=== PATIENT | female | born 1960 | race Caucasian/White ===

== ENCOUNTER → 2016-07-28 | Outpatient (CLI) | payer MEDICARE ==
[2016-07-28 10:41] LABS: Erythrocyte Sedimentation Rate 19 mm/hr (0-20)
[2016-07-28 11:22] LABS: ALT 42 U/L (9-52); AST 20 U/L (14-36); Alkaline Phosphatase 106 U/L (38-126); Anion Gap 11 mmol/L; Blood Urea Nitrogen 27 mg/dL (7-17); C Reactive Protein 5.9 mg/L (<10.0); Calcium 9.9 mg/dL (8.4-10.2); Carbon Dioxide 30 mmol/L (22-30); Chloride 105 mmol/L (98-107); Cholesterol 197 mg/dL (<200); Glucose 110 mg/dL (74-99); HDL Cholesterol 66 mg/dL (40-60); Magnesium 2.3 mg/dL (1.6-2.3); Non-African American GFR(MDRD) 57 (>60 ml/min/1.73 sqM); Potassium 4.3 mmol/L (3.5-5.1); Sodium 146 mmol/L (137-145); Total Bilirubin 0.4 mg/dL (0.2-1.3); Total Protein 7.6 g/dL (6.3-8.2); Triglycerides 77 mg/dL (<150); Uric Acid 4.2 mg/dL (3.7-7.4)
[2016-07-28 11:23] LABS: Rheumatoid Factor, Qnt <9 IU/mL (<12)
[2016-07-28 12:32] LABS: Basophils % (A) 1 %; CH 28.1; CHCM 32.6; Eosinophils # (A) 0.1 k/uL (0-0.7); Eosinophils % (A) 2 %; HCT 41.2 % (34.0-46.0); HDW 2.64; HGB 13.7 gm/dL (11.4-16.0); Luc % (Auto) 1; Lymphocytes # (A) 2.3 k/uL (1.0-4.8); Lymphocytes % (A) 35 %; MCH 28.8 pg (25.0-35.0); MCHC 33.3 g/dL (31.0-37.0); MCV 86.5 fL (80.0-100.0); Mean Platelet Volume 7.9; Monocytes # (A) 0.3 k/uL (0-1.0); Monocytes % (A) 5 %; Neutrophils # (A) 3.7 k/uL (1.3-7.7); Neutrophils % (A) 56 %; RBC 4.76 m/uL (3.80-5.40); RDW 14.4 % (11.5-15.5); WBC 6.6 k/uL (3.8-10.6); WBC (Perox) 6.48
== END | disposition home or self-care (01) ==
LOC: LABWHC1 06:32
PROVIDERS: ATTEND Internal Medicine
DX: M25.579 Pain in unspecified ankle and joints of unspecified foot (principal); I10 Essential (primary) hypertension; M54.2 Cervicalgia
CPT/HCPCS: 36415; 80053; 80061; 83735; 84439; 84443; 84481; 84550; 85025; 85652; 86038; 86140; 86200; 86431

== ENCOUNTER → 2016-08-12 | Outpatient (CLI) | payer MEDICARE ==
--- NOTE | 2016-08-12 13:12 | US ---
EXAMINATION TYPE: US thyroid st tissue head/neck DATE OF EXAM: 08/12/2016 12:25 PM COMPARISON: NONE CLINICAL HISTORY: M54.2 neck pain. neck tenderness, enlarged thyroid on exam GLAND SIZE: Right Lobe: 4.5 x 1.2 x 1.8 cm Left Lobe: 4.6 x 1.2 x 1.4 cm Isthmus Thickness: 0.3 cm NODULES RIGHT: # of nodules measured on right: 3 1. 1.3 X 0.6 x 1.1 cm cystic nodule at the upper anterior pole with well-defined margins. This nod ule is wider than tall and shows no intranodular vascularity. Prior size: no previous 2. 0.7 X 0.5 x 0.5 cm cystic nodule at the lower pole with well-defined margins. This nodule is wid er than tall and shows no intranodular vascularity. Prior size: no previous 3. 0.6 cm mixed cystic nodule at the mid anterior pole with well-defined margins. This nodule is wid er than tall and shows no intranodular vascularity. Prior size: no previous 4. Few small other scattered cystic nodules less than 0.5cm LEFT: # of nodules measured on left: 2 1. 1.0 X 0.7 x 0.7 cm complex cystic nodule at the lower pole with well-defined margins. This nodu le is wider than tall and shows vascularity within the internal echoes. Prior size: no previous 2. 1.1 X 0.7 x 0.9 cm heterogeneous solid nodule at the upper pole with well-defined margins and a s hadowing calcified component. This nodule is wider than tall and shows intranodular vascularity. Prior size: no previous ISTHMUS: # of nodules measured in the isthmus: 0 Thyroid gland is normal in size with scattered small nodules identified. Largest well-circumscribed o sariah 1.3 cm cystic nodule has a focus of colloid along the periphery. Largest left thyroid lobe measur es 1.1 cm on long axis. IMPRESSION: Ultrasound findings are consistent with multinodular goiter as detailed above.
== END | disposition home or self-care (01) ==
LOC: RADUSWWP 11:57
PROVIDERS: ATTEND Internal Medicine
DX: M54.2 Cervicalgia (principal)
CPT/HCPCS: 76536

== ENCOUNTER 2016-11-11 10:28 | Observation (INO) | payer MEDICARE, OTHER ==
--- NOTE | 2016-11-11 11:04 | ED ---
General Adult HPI - General Chief complaint: Chest Pain Stated complaint: chest pain,abn ekg Time Seen by Provider: 11/11/16 10:35 Source: patient, RN notes reviewed, old records reviewed Mode of arrival: wheelchair Limitations: no limitations - History of Present Illness Initial comments: This is a 56-year-old female the ER for evaluation. Patient has a for evaluation of chest pain. Patient originally presented to primary care sent here for approximately normally EKG. patient does have history of high blood pressure. Patient currently still complaining of chest pain. No fevers cough or congestion or shortness of breath travel history - Related Data Home Medications Medication Instructions Recorded Confirmed Aspirin 81 mg PO DAILY 09/29/15 11/11/16 Hydrochlorothiazide 12.5 mg PO DAILY 09/29/15 11/11/16 Lactulose 6.67 gm PO DAILY PRN 09/29/15 11/11/16 Lisinopril [Zestril] 20 mg PO BID 09/29/15 11/11/16 amLODIPine [Norvasc] 5 mg PO DAILY 09/29/15 11/11/16 Ibuprofen [Motrin] 800 mg PO Q8H PRN 11/11/16 11/11/16 LORazepam [Ativan] 1 mg PO BID PRN 11/11/16 11/11/16 Allergies Allergy/AdvReac Type Severity Reaction Status Date / Time No Known Allergies Allergy Verified 11/11/16 11:04 Review of Systems ROS Statement: Those systems with pertinent positive or pertinent negative responses have been documented in the HPI. ROS Other: All systems not noted in ROS Statement are negative. Past Medical History Past Medical History: Hypertension Additional Past Medical History / Comment(s): hypoglycemia History of Any Multi-Drug Resistant Organisms: None Reported Past Surgical History: Cholecystectomy, Hernia Repair, Hysterectomy Additional Past Surgical History / Comment(s): trach as a baby, Past Psychological History: Depression Smoking Status: Never smoker Past Alcohol Use History: Rare Past Drug Use History: None Reported General Exam Limitations: no limitations General appearance: alert, in no apparent distress Head exam: Present: atraumatic, normocephalic, normal inspection Eye exam: Present: normal appearance, PERRL, EOMI. Absent: scleral icterus, conjunctival injection, periorbital swelling ENT exam: Present: normal exam, mucous membranes moist Neck exam: Present: normal inspection. Absent: tenderness, meningismus, lymphadenopathy Respiratory exam: Present: normal lung sounds bilaterally. Absent: respiratory distress, wheezes, rales, rhonchi, stridor Cardiovascular Exam: Present: regular rate, normal rhythm, normal heart sounds. Absent: systolic murmur, diastolic murmur, rubs, gallop, clicks GI/Abdominal exam: Present: soft, normal bowel sounds. Absent: distended, tenderness, guarding, rebound, rigid Extremities exam: Present: normal inspection, full ROM, normal capillary refill. Absent: tenderness, pedal edema, joint swelling, calf tenderness Back exam: Present: normal inspection Neurological exam: Present: alert, oriented X3, CN II-XII intact Psychiatric exam: Present: normal affect, normal mood Skin exam: Present: warm, dry, intact, normal color. Absent: rash Course Vital Signs 11/11/16 11/11/16 10:31 11:15 Temperature 97.9 F Pulse Rate 89 77 Respiratory 20 18 Rate Blood Pressure 196/87 169/85 O2 Sat by Pulse 99 99 Oximetry - Reevaluation(s) Reevaluation #1: 11/11/16 13:18 Patient is to chest pain at this time EKG Findings - EKG Comments: EKG Findings:: EKG shows normal sinus rhythm rate of 80, ME 150, QRS 84, QTC 429 Medical Decision Making - Medical Decision Making 36 severity chest pain, history of chest pain history of heart disease. Patient be admitted for cardiac observation, anticoagulation telemetry and serial troponins - Lab Data Result diagrams: 11/11/16 10:55 11/11/16 10:55 Lab Results 11/11/16 11/11/16 11/11/16 Range/Units 10:55 10:55 10:55 WBC 8.4 (3.8-10.6) k/uL RBC 4.52 (3.80-5.40) m/uL Hgb 13.4 (11.4-16.0) gm/dL Hct 38.4 (34.0-46.0) % MCV 84.9 (80.0-100.0) fL MCH 29.6 (25.0-35.0) pg MCHC 34.8 (31.0-37.0) g/dL RDW 13.8 (11.5-15.5) % Plt Count 234 (150-450) k/uL Neutrophils % 71 % Lymphocytes % 23 % Monocytes % 4 % Eosinophils % 0 % Basophils % 0 % Neutrophils # 6.0 (1.3-7.7) k/uL Lymphocytes # 2.0 (1.0-4.8) k/uL Monocytes # 0.3 (0-1.0) k/uL Eosinophils # 0.0 (0-0.7) k/uL Basophils # 0.0 (0-0.2) k/uL PT (9.0-12.0) sec INR (<1.1) APTT (22.0-30.0) sec Sodium 145 (137-145) mmol/L Potassium 3.8 (3.5-5.1) mmol/L Chloride 108 H (98-107) mmol/L Carbon Dioxide 25 (22-30) mmol/L Anion Gap 12 mmol/L BUN 21 H (7-17) mg/dL Creatinine 0.90 (0.52-1.04) mg/dL Est GFR (MDRD) Af Amer >60 (>60 ml/min/1.73 sqM) Est GFR (MDRD) Non-Af >60 (>60 ml/min/1.73 sqM) Glucose 99 (74-99) mg/dL Calcium 9.9 (8.4-10.2) mg/dL Magnesium 2.0 (1.6-2.3) mg/dL Total Bilirubin 0.5 (0.2-1.3) mg/dL AST 21 (14-36) U/L ALT 38 (9-52) U/L Alkaline Phosphatase 121 (38-126) U/L Total Creatine Kinase 148 H (30-135) U/L CK-MB (CK-2) 0.4 (0.0-2.4) ng/mL CK-MB (CK-2) Rel Index 0.3 Troponin I <0.012 (0.000-0.034) ng/mL Total Protein 7.4 (6.3-8.2) g/dL Albumin 4.5 (3.5-5.0) g/dL Lipase 85 (23-300) U/L / Range/Units 10:55 WBC (3.8-10.6) k/uL RBC (3.80-5.40) m/uL Hgb (11.4-16.0) gm/dL Hct (34.0-46.0) % MCV (80.0-100.0) fL MCH (25.0-35.0) pg MCHC (31.0-37.0) g/dL RDW (11.5-15.5) % Plt Count (150-450) k/uL Neutrophils % % Lymphocytes % % Monocytes % % Eosinophils % % Basophils % % Neutrophils # (1.3-7.7) k/uL Lymphocytes # (1.0-4.8) k/uL Monocytes # (0-1.0) k/uL Eosinophils # (0-0.7) k/uL Basophils # (0-0.2) k/uL PT 10.8 (9.0-12.0) sec INR 1.1 (<1.1) APTT 26.0 (22.0-30.0) sec Sodium (137-145) mmol/L Potassium (3.5-5.1) mmol/L Chloride (98-107) mmol/L Carbon Dioxide (22-30) mmol/L Anion Gap mmol/L BUN (7-17) mg/dL Creatinine (0.52-1.04) mg/dL Est GFR (MDRD) Af Amer (>60 ml/min/1.73 sqM) Est GFR (MDRD) Non-Af (>60 ml/min/1.73 sqM) Glucose (74-99) mg/dL Calcium (8.4-10.2) mg/dL Magnesium (1.6-2.3) mg/dL Total Bilirubin (0.2-1.3) mg/dL AST (14-36) U/L ALT (9-52) U/L Alkaline Phosphatase (38-126) U/L Total Creatine Kinase (30-135) U/L CK-MB (CK-2) (0.0-2.4) ng/mL CK-MB (CK-2) Rel Index Troponin I (0.000-0.034) ng/mL Total Protein (6.3-8.2) g/dL Albumin (3.5-5.0) g/dL Lipase (23-300) U/L - Radiology Data Radiology results: report reviewed (Chest x-ray is negative for acute disease), image reviewed Critical Care Time Critical Care Time: Yes Total Critical Care Time: 31 Disposition Clinical Impression: Chest pain Disposition: ADMITTED IP TO THIS HOSP Condition: Undetermined Instructions: Chest Pain (ED) Referrals: Camden Rothman MD [Primary Care Provider] - 1-2 days
[2016-11-11 11:57] LABS: Basophils % (A) 0 %; CHCM 33.2; Eosinophils % (A) 0 %; HCT 38.4 % (34.0-46.0); HGB 13.4 gm/dL (11.4-16.0); Luc # (Auto) 0.11; Luc % (Auto) 1; Lymphocytes % (A) 23 %; MCH 29.6 pg (25.0-35.0); MCHC 34.8 g/dL (31.0-37.0); MCV 84.9 fL (80.0-100.0); Mean Platelet Volume 7.2; Monocytes # (A) 0.3 k/uL (0-1.0); Monocytes % (A) 4 %; Neutrophils % (A) 71 %; RBC 4.52 m/uL (3.80-5.40); RDW 13.8 % (11.5-15.5); WBC 8.4 k/uL (3.8-10.6); WBC (Perox) 8.46
[2016-11-11 12:08] LABS: ALT 38 U/L (9-52); AST 21 U/L (14-36); Alkaline Phosphatase 121 U/L (38-126); Anion Gap 12 mmol/L; Blood Urea Nitrogen 21 mg/dL (7-17); Calcium 9.9 mg/dL (8.4-10.2); Carbon Dioxide 25 mmol/L (22-30); Chloride 108 mmol/L (98-107); Glucose 99 mg/dL (74-99); Non-African American GFR(MDRD) >60 (>60 ml/min/1.73 sqM); Potassium 3.8 mmol/L (3.5-5.1); Sodium 145 mmol/L (137-145); Total Bilirubin 0.5 mg/dL (0.2-1.3); Total Protein 7.4 g/dL (6.3-8.2)
[2016-11-11 12:09] LABS: INR 1.1 (<1.1); Prothrombin Time 10.8 sec (9.0-12.0)
[2016-11-11 12:17] LABS: Creatine Kinase 148 U/L (30-135)
--- NOTE | 2016-11-11 12:27 | XR ---
EXAMINATION TYPE: XR chest 2V DATE OF EXAM: 11/11/2016 HISTORY: Chest Pain. REFERENCE: Previous study dated 07/13/2012. FINDINGS: The lungs are clear. Pleural spaces are clear. Heart size is normal. IMPRESSION: NORMAL CHEST.
[2016-11-11 12:30] LABS: Creatine Kinase MB 0.4 ng/mL (0.0-2.4); Troponin I <0.012 ng/mL (0.000-0.034)
[2016-11-11] MEDS ORDERED: MORPHINE SULFATE 4 MG/ML SYRINGE IV PRN (12:58)
[2016-11-11] MEDS ORDERED: NITROGLYCERIN SL TABS 0.4 MG TAB SUBLINGUAL PRN (12:58)
[2016-11-11] MEDS ORDERED: MORPHINE SULFATE 2 MG/ML SYRINGE IVP PRN (12:58)
[2016-11-11] MEDS ORDERED: ASPIRIN 81 MG CHEW PO STA (12:58)
[2016-11-11] MEDS ORDERED: SODIUM CHLORIDE 0.9% 1,000 ML IV SCH (13:00)
[2016-11-11] MEDS ORDERED: LACTULOSE 20 GM/30 ML CUP PO PRN (14:18)
[2016-11-11] MEDS ORDERED: LORazepam 1 MG TAB PO PRN (14:18)
[2016-11-11 14:35] VITALS: RESP 16
[2016-11-11 17:38] LABS: Creatine Kinase 131 U/L (30-135)
[2016-11-11 17:52] LABS: Creatine Kinase MB 0.4 ng/mL (0.0-2.4); Troponin I <0.012 ng/mL (0.000-0.034)
[2016-11-11] MEDS ORDERED: NITROGLYCERIN OINT 1 INCH/GM PACKET TOPICAL SCH (18:00)
[2016-11-11] MEDS: LISINOPRIL 20 MG TAB PO SCH (20:14)
--- NOTE | 2016-11-11 21:00 | PN ---
Mrs. Robbins is a 56-year-old female who was admitted to the hospital with symptoms of chest discomfort. She has been having discomfort on and off for the last 5 days. The discomfort is not related to activity. It lasts for a few minutes and is radiating to the back, not associated with any other symptoms. She is reasonably active physically, has no exertional chest pain. No tightness in the chest. No significant dyspnea. No dizziness, palpitation or syncope. She has no PND, orthopnea or peripheral edema. She has been told a few years back that she had a leaky valve. Her coronary risk factors are remarkable for history of hypertension. She is a nonsmoker. Her medications at home include: 1. Norvasc 5 mg daily. 2. Zestril 20 mg twice a day. 3. Hydrochlorothiazide 12.5 mg daily. 4. Lactulose. 5. Aspirin once a day. REVIEW OF SYSTEMS: RESPIRATORY SYSTEM: She has no wheezing. No cough. No history of documented obstructive lung disease. GI SYSTEM: No recent GI bleeding. No peptic ulcer disease. SYSTEM: She has a remote history of hematuria, but not at this point. NERVOUS SYSTEM: No stroke or seizure. PHYSICAL EXAMINATION: A 56-year-old female, alert, oriented, in no apparent distress. Blood pressure running in the 150s to 160s with a heart rate in the 70s. LUNGS: Clear. HEART: Regular rate, rhythm. S1, S2. No S3. Systolic murmur heard at the base, ejection type, 2/6. No diastolic murmur. ABDOMEN: Soft, nontender. Positive bowel sounds. No organomegaly. EXTREMITIES: No edema. Intact distal pulses. Lab data revealed troponin less than 0.012 for one sample, BUN and creatinine of 21 and 0.9. Potassium 3.8. Hemoglobin is 13.4. EKG revealed a sinus mechanism, normal axis and intervals with nonspecific ST-T wave changes. Chest x-ray shows no infiltrate. IMPRESSION: 1. Chest discomfort of unclear etiology; has atypical features of ischemic disease, probably non-cardiac. 2. History of hypertension. 3. Family history of coronary artery disease. RECOMMENDATION: From the cardiac standpoint, I will proceed with obtaining an echocardiogram with Doppler as well as a stress echocardiogram. If there is no evidence of inducible ischemia, then no further cardiac workup will be needed. Thank you for this consult. Will follow with you.
--- NOTE | 2016-11-11 23:24 | HP ---
DATE OF ADMISSION: 11/11/2016 CHIEF COMPLAINT: Chest pain. HISTORY OF PRESENT ILLNESS: This 56-year-old woman with a past medical history of multiple medical problems, history of DJD, history of pneumonia, history of hypoglycemia, history of bilateral tinnitus, history of UTI, history of cardiac catheterization, history of cholecystectomy, history of depression, being followed by Dr. Rothman in the outpatient setting, was admitted with chest pain. The patient felt her chest pains in the anterior part of the chest, and they have been going on for the last 5 days. Because of lack of improvement, the patient came to [facility] and was admitted for further evaluation and treatment. The pain is rather sharp and felt also going through the back. EKG at the doctor's office showed ST-T changes. Patient was admitted for further evaluation and treatment. Troponins are negative. EKG confirmed the ST-T changes. There is no history of any fever, rigor, or chills. No history of any headache, loss of consciousness, seizures. Patient lives with her family. PAST MEDICAL HISTORY: 1. Hypertension. 2. DJD. 3. History of pneumonia. 4. Hypoglycemia. 5. Cholecystectomy. 6. Cardiac catheterization. HOME MEDICATIONS: 1. Motrin 800 mg q.8 p.r.n. 2. Norvasc 5 mg p.o. daily. 3. Zestril 20 mg p.o. b.i.d. 4. Lactulose 6.6 mg p.o. daily p.r.n. 5. Ativan 1 mg b.i.d. p.r.n. 6. Hydrochlorothiazide 12.5 mg daily. 7. Aspirin 81 mg daily. ALLERGIES: NONE. FAMILY HISTORY: No history of cardiac disease or strokes in the family. SOCIAL HISTORY: No history of smoking. Occasional alcohol intake. REVIEW OF SYSTEMS: ENT: No diminishing hearing. No diminished hearing. CARDIOVASCULAR: As mentioned earlier. RESPIRATORY: As mentioned earlier. GI: No nausea, vomiting. : No dysuria, retention. NERVOUS SYSTEM: No numbness or weakness. ALLERGY/IMMUNOLOGY: No asthma, hayfever. MUSCULOSKELETAL: As mentioned earlier. HEMATOLOGY/ONCOLOGY: No history of anemia. ENDOCRINE: No history of diabetes, hypothyroidism. CONSTITUTIONAL: As mentioned earlier. DERMATOLOGY: Negative. RHEUMATOLOGY: Negative. PSYCHIATRY: As mentioned earlier. PHYSICAL EXAMINATION: Patient is alert and oriented x3. Pulse 79, blood pressure 160/85, respiration 16, temperature 98.2, pulse ox 100% on room air. HEENT: Conjunctivae normal. Oral mucosa moist. NECK: No jugular venous distention. No carotid bruit. No lymph node enlargement. CARDIOVASCULAR SYSTEM: S1, S2 muffled. No S3. No S4. RESPIRATORY SYSTEM: Breath sounds diminished at the bases. No rhonchi. No crackles. ABDOMEN: Soft, non-tender. No mass palpable. LEGS: No edema. No swelling. NERVOUS SYSTEM: Higher functions as mentioned earlier. Moves all 4 limbs. No focal motor or sensory deficit. LYMPHATICS: No lymph node palpable in neck, axillae or groin. SKIN: No ulcer, rash, bleeding. LABS: CBC within normal limits. Sodium 140, potassium 3.8. BUN is 21. ASSESSMENT: 1. Chest pain; possible unstable angina. 2. ST-T changes on the EKG. 3. History of hypertension, essential. 4. History of degenerative joint disease. 5. History of pneumonia. 6. History of hypoglycemia. 7. History of urinary tract infection. 8. History of degenerative joint disease. 9. Chronic low back pain. 10. History of hernia repair. 11. History of depression. RECOMMENDATIONS AND DISCUSSION: In this 56-year-old woman who presented with multiple medical issues, we will monitor the patient closely, continue the current medications, continue symptomatic treatment. Otherwise, at this time rule out myocardial infarction. Cardiology consultation. Patient apparently did have a cardiac catheterization previously, the results of which are not available at this time. Continue to monitor. See orders. Symptomatic treatment. Further recommendations to follow. A copy of this dictation is being forwarded to Dr. Camden Rothman, who is the primary physician.
[2016-11-11] MEDS ORDERED: ACETAMINOPHEN TAB 325 MG TAB PO PRN (23:36)
[2016-11-12 00:56] LABS: Creatine Kinase 132 U/L (30-135)
[2016-11-12 01:09] LABS: Creatine Kinase MB 0.4 ng/mL (0.0-2.4); Troponin I <0.012 ng/mL (0.000-0.034)
[2016-11-12 06:05] LABS: Cholesterol 154 mg/dL (<200); HDL Cholesterol 48 mg/dL (40-60); Triglycerides 86 mg/dL (<150)
[2016-11-12] MEDS ORDERED: ASPIRIN 325 MG TAB PO SCH (09:00)
[2016-11-12] MEDS ORDERED: HYDROCHLOROTHIAZIDE 12.5 MG CAP PO SCH (09:00)
[2016-11-12] MEDS ORDERED: ATORVASTATIN 80 MG TAB PO SCH (09:00)
[2016-11-12] MEDS ORDERED: amLODIPine 5 MG TAB PO SCH (09:00)
--- NOTE | 2016-11-12 10:05 | ECHOF ---
Referral Reason: MEASUREMENTS -------- HEIGHT: 160.0 cm WEIGHT: 72.6 kg BP: 160/85 RVIDd: 2.8 cm (< 3.3) IVSd: 1.2 cm (0.6 - 1.1) LVIDd: 4.6 cm (3.9 - 5.3) LVPWd: 1.2 cm (0.6 - 1.1) IVSs: 1.5 cm LVIDs: 2.2 cm LVPWs: 1.3 cm LAESV Index (A-L): 13.71 ml/m Ao Diam: 2.9 cm (2.0 - 3.7) AV Cusp: 1.8 cm (1.5 - 2.6) LA Diam: 2.8 cm (2.7 - 3.8) MV EXCURSION: 15.618 mm (> 18.000) MV EF SLOPE: 91 mm/s (70 - 150) EPSS: 0.7 cm MV E Mitchell: 0.94 m/s MV DecT: 230 ms MV A Mitchell: 1.31 m/s MV E/A Ratio: 0.72 AR PHT: 616 ms RAP: 5.00 mmHg RVSP: 12.42 mmHg FINDINGS -------- Sinus rhythm. This was a technically adequate study. There is borderline concentric left ventricular hypertrophy. Overall left ventricular systolic function is normal with, an EF between 60 - 65 %. The right ventricle is normal in size and function. Normal LA size by volume 22+/-6 ml/m2. The right atrium is normal in size. Aortic valve is trileaflet and is mildly thickened. There is mild aortic regurgitation. The aortic pressure half-time by doppler is 616ms. There is no evidence of aortic stenosis. The mitral valve leaflets are mildly thickened. There is trace to mild mitral regurgitation. Trace tricuspid regurgitation present. There is no evidence of pulmonary hypertension. The right ventricular systolic pressure, as measured by Doppler, is 12.42mmHg. The pulmonic valve is normal. The aortic root size is normal. Normal inferior vena cava with normal inspiratory collapse consistent with estimated right atrial pressure of 5 mmHg. The pericardium is normal. There is no pericardial effusion. CONCLUSIONS -------- 1. Sinus rhythm. 2. Trace tricuspid regurgitation present. 3. There is no evidence of pulmonary hypertension. 4. The right ventricular systolic pressure, as measured by Doppler, is 12.42mmHg. 5. The aortic root size is normal. 6. There is no pericardial effusion. 7. There is borderline concentric left ventricular hypertrophy. 8. Overall left ventricular systolic function is normal with, an EF between 60 - 65 %. 9. Normal LA size by volume 22+/-6 ml/m2. 10. Aortic valve is trileaflet and is mildly thickened. 11. There is mild aortic regurgitation. 12. The aortic pressure half-time by doppler is 616ms. 13. The mitral valve leaflets are mildly thickened. 14. There is trace to mild mitral regurgitation. [employer] MANAGER: Lui Bhandari RDCS
[2016-11-12 12:21] VITALS: BP 137/77; PULSE 83; TEMP 98
[2016-11-12] MEDS: LISINOPRIL 20 MG TAB PO SCH (12:24)
--- NOTE | 2016-11-12 12:50 | PN ---
Mrs. Robbins is a 56-year-old female who has history of hypertension who presented with symptoms of chest discomfort. She had vague discomfort earlier but she is pain free at this time. Her breathing has been stable. She has no dizziness or palpitation. She has no nausea or vomiting. She continued to on aspirin once a day, amlodipine 5 mg daily, Lipitor 80 mg daily, hydrochlorothiazide 12.5 mg daily, lisinopril 20 mg twice a day. PHYSICAL EXAMINATION: Blood pressure 135/60 with the heart rate in the 80s. LUNGS: Clear. HEART: Regular rate and rhythm. S1 and S2, no S3, no rub. ABDOMEN: Soft, nontender. EXTREMITIES: No edema. Lab data revealed troponin less than 0.012. Cholesterol 154, LDL of 89. IMPRESSION: 1. Chest discomfort of atypical pattern. 2. History of hypertension. 3. Family history of coronary artery disease. RECOMMENDATION: Will proceed with a stress echocardiogram today. If there is no evidence of inducible ischemia, then no further cardiac workup will be needed.
--- NOTE | 2016-11-12 13:00 | ECHOS ---
DATE OF SERVICE: 11/12/2016 AGE: 56Y SEX: F HT: 63 WT: 160 lbs. Protocol Allen: X Others: Stress Echo Stage: III Dur. of Exercise: 7 minutes *Heart Rate Blood Pressure *Rest: 92 Rest: 136/67 * *Max. Achieved: 151 Maximum BP: 130/56 85% PMHR: 139 100% PMHR: 164 *METS: 8.1 INDICATIONS: Chest pain. MEDICATIONS: Patient was exercised for a total period of 7 minutes. Peak heart rate of 151 was achieved. Maximum blood pressure of 130/56 mmHg was noted. Resting EKG shows normal sinus rhythm with normal AK interval and QRS duration and normal ST-T waves. During exercise, J-point depression with upsloping ST segments are noted. The baseline echocardiographic images reveal a normal left ventricular chamber size with normal left ventricular systolic function. In the immediate postexercise period, normal increase in the wall thickness and contractility is noted. FINAL IMPRESSION: 1. This stress echocardiographic study is negative for stress-induced ischemia. 2. Patient's exercise tolerance is average. 3. EKG portion of the stress test shows equivocal nondiagnostic ST segment changes.
--- NOTE | 2016-11-13 11:22 | DS ---
DATE OF ADMISSION: 11/11/2016 DATE OF DISCHARGE: 11/12/2016 FINAL DIAGNOSES: 1. Chest pain, possible musculoskeletal pain. Negative stress test. 2. ST-T changes on EKG. 3. History of hypertension, essential. 4. History of degenerative joint disease. 5. History of pneumonia. 6. History of hypoglycemia. 7. History of urinary tract infection. 8. History of chronic low back pain. 9. History of hernia repair. 10. History of depression. DISCHARGE DISPOSITION: Patient will be discharged in stable condition with guarded prognosis. HISTORY OF PRESENT ILLNESS: This 56-year-old woman with a past medical history of multiple medical problems was admitted with chest pain, myocardial infarction ruled out. The patient underwent a stress echo by Cardiology which did not show any stress-induced ischemia. Exercise tolerance was average. The patient also had a 2-D echo with Doppler which showed ejection fraction about 60% to 65%. Cardiology okayed the patient for discharge. On exam, vitals are stable. CARDIOVASCULAR: S1 and S2 muffled. ABDOMEN: Soft. NERVOUS SYSTEM: No focal deficits. DISCHARGE ADVICE AND MEDICATIONS: 1. Diet is cardiac. 2. Activity limited until followup. 3. Follow up with Dr. Rothman in 2 to 3 days. 4. Follow up with Dr. Jung as advised. 5. Medications will be: a. Norvasc 5 mg p.o. daily. b. Aspirin 81 mg daily. c. Hydrochlorothiazide 12.5 mg daily. d. Lactulose 6.6 g in 15 mL daily p.r.n. e. Zestril 20 mg p.o. b.i.d. f. Ativan 1 mg p.o. b.i.d. p.r.n. Once again, the patient will be discharged in a stable continue with guarded prognosis.
== END 2016-11-12 14:20 | disposition home or self-care (01) ==
LOC: EC 10:28 → 3OBS 12:58
PROVIDERS: ADMIT Hospitalist; ATTEND Hospitalist
DX: R07.89 Other chest pain (principal); I10 Essential (primary) hypertension; M19.90 Unspecified osteoarthritis, unspecified site; E16.2 Hypoglycemia, unspecified; M54.5 Low back pain; F32.9 Major depressive disorder, single episode, unspecified; G89.29 Other chronic pain; I51.9 Heart disease, unspecified; Z79.899 Other long term (current) drug therapy; Z79.82 Long term (current) use of aspirin; Z90.49 Acquired absence of other specified parts of digestive tract; Z90.710 Acquired absence of both cervix and uterus; Z82.49 Family history of ischemic heart disease and other diseases of the circulatory system
CPT/HCPCS: 99291 ×2; 36415; 93005; 93017; 93306; 93350; 80061; 80053; 82550; 82553; 83690; 83735; 84484; 85025; 85610; 85730; 71020; G0378 ×2

== ENCOUNTER 2016-11-21 15:49 | Emergency (ER) | payer MEDICARE, OTHER ==
[2016-11-21 15:57] VITALS: BP 137/77; PULSE 108; RESP 20; TEMP 98
--- NOTE | 2016-11-21 16:22 | ED ---
Back Pain HPI - General Chief Complaint: Back Pain/Injury Stated Complaint: back pain Time Seen by Provider: 11/21/16 16:05 Source: patient, RN notes reviewed Limitations: no limitations - History of Present Illness Initial Comments: Patient is a 56-year-old female presents to the emergency room for evaluation of left sided back pain. Patient states she was recently discharged from the hospital regarding chest pain and back pain. Patient states that she received a stress test and a cardiac workup and everything came back negative. Patient states that she has an appointment with the tax compliance officer on the sixth of this month. Patient states around 1 PM she began developing right-sided mid back pain. Patient states this pain did feel similar to last time she was here. Patient states she was told if she developed any symptoms to come to the emergency room to make sure she is not having a heart attack. Patient denies shortness of breath. Patient denies the pain worsening with a deep breath. Patient denies any current chest pain. Patient denies nausea or vomiting. Patient denies pain or burning during urination, trouble urinating or blood in urine. Patient denies any recent trauma or injury to her back. Patient states the pain is worse with movement. Patient states the pain feels like a burning sensation. Patient states she did take Tylenol with relief of symptoms. - Related Data Home Medications Medication Instructions Recorded Confirmed Aspirin 81 mg PO DAILY 09/29/15 11/11/16 Hydrochlorothiazide 12.5 mg PO DAILY 09/29/15 11/11/16 Lactulose 6.67 gm PO DAILY PRN 09/29/15 11/11/16 Lisinopril [Zestril] 20 mg PO BID 09/29/15 11/11/16 amLODIPine [Norvasc] 5 mg PO DAILY 09/29/15 11/11/16 LORazepam [Ativan] 1 mg PO BID PRN 11/11/16 11/11/16 Allergies Allergy/AdvReac Type Severity Reaction Status Date / Time No Known Allergies Allergy Verified 11/21/16 15:57 Review of Systems ROS Statement: Those systems with pertinent positive or pertinent negative responses have been documented in the HPI. ROS Other: All systems not noted in ROS Statement are negative. Past Medical History Past Medical History: Hypertension, Osteoarthritis (OA), Pneumonia Additional Past Medical History / Comment(s): hypoglycemia, occasional bilateral tinnitus, UTI, arthritis bilateral hands and in back, chronic low back pain, History of Any Multi-Drug Resistant Organisms: None Reported Past Surgical History: Cholecystectomy, Heart Catheterization, Hernia Repair, Hysterectomy Additional Past Surgical History / Comment(s): Cardiac cath-no treatment, bilateral inguinal hernia repairs, colonoscopy, trach as a infant. Past Anesthesia/Blood Transfusion Reactions: No Reported Reaction Past Psychological History: Depression Smoking Status: Never smoker Past Alcohol Use History: Rare Past Drug Use History: None Reported - Past Family History Father Family Medical History: No Reported History Additional Family Medical History / Comment(s): Father in his 80's. Mother Family Medical History: Cancer Additional Family Medical History / Comment(s): Mother of lung cancer at the age of 38yrs. She was a smoker. General Exam - General Exam Comments Initial Comments: Sitting in exam room, no acute distress. Limitations: no limitations General appearance: alert, in no apparent distress Head exam: Present: atraumatic, normocephalic, normal inspection Eye exam: Present: normal appearance ENT exam: Present: normal exam Neck exam: Present: normal inspection Respiratory exam: Present: normal lung sounds bilaterally. Absent: respiratory distress Cardiovascular Exam: Present: normal rhythm, tachycardia, normal heart sounds Expanded Peripheral pulses: 2+: Carotid (R), Carotid (L), Femoral (R), Femoral (L), Posterior Tibialis (R), Posterior Tibialis (L), Dorsalis Pedis (R), Dorsalis Pedis (L) GI/Abdominal exam: Present: soft, normal bowel sounds. Absent: distended, tenderness, guarding, rebound, rigid Extremities exam: Present: normal inspection Back exam: Present: normal inspection Neurological exam: Present: alert, oriented X3, CN II-XII intact, normal gait Psychiatric exam: Present: normal affect, normal mood Skin exam: Present: warm, dry, intact, normal color. Absent: rash Course Vital Signs 11/21/16 15:55 Temperature 98 F Pulse Rate 108 H Respiratory 20 Rate Blood Pressure 137/77 O2 Sat by Pulse 99 Oximetry Medical Decision Making - Medical Decision Making Patient is a 56-year-old female presents to the emergency room for evaluation of back pain. Patient was admitted here about a week ago for chest pain. Repeat EKG consistent with previous EKG's. Patient's echocardiogram and stress test negative for any concerning findings. Patient does have a follow-up appointment with her tax compliance officer on the sixth of this month. Patient is complaining of minimal pain at the moment. Patient has good pulses. Blood pressure within normal limits. Case discussed with Dr. Mahan. Dr. Mahan also evaluated patient and agrees with plan for discharge and to still follow-up with tax compliance officer. Patient's symptoms consistent with possible back muscle strain. Patient states she understands everything that was discussed with her. Return parameters discussed. 11/21/16 16:34 EKG: Normal sinus rhythm, ventricular rate 94 bpm, NC interval 144 ms, QRS duration 78 ms, QT/QTC 354/442 ms. EKG unchanged from previous. Disposition Clinical Impression: Thoracic back pain Disposition: HOME SELF-CARE Condition: Good Instructions: Thoracic Back Strain (ED) Additional Instructions: Continue taking Tylenol as needed for pain. Please follow up with primary care provider and tax compliance officer. If any new symptom arises or symptoms worsen, return to ER as soon as possible. Referrals: Camden Rothman MD [Primary Care Provider] - 1-2 days Time of Disposition: 16:36
[2016-11-21] MEDS ORDERED: MAG HYDROX/AL HYDROX/SIMETH 30 ML, HYOSCYAMINE ELIXIR 10 ML, CIMETIDINE HCL 300 MG, LID... PO STA ×4 (16:25)
== END 2016-11-21 17:07 | disposition home or self-care (01) ==
LOC: EC 15:49
DX: M54.6 Pain in thoracic spine (principal); I10 Essential (primary) hypertension; M19.90 Unspecified osteoarthritis, unspecified site; F32.9 Major depressive disorder, single episode, unspecified; Z79.82 Long term (current) use of aspirin; Z79.899 Other long term (current) drug therapy; Z95.818 Presence of other cardiac implants and grafts
CPT/HCPCS: 93005; 99284

== ENCOUNTER 2017-01-05 17:51 | Emergency (ER) | payer MEDICARE, OTHER ==
[2017-01-05] MEDS ORDERED: LORazepam 2 MG/ML SYRINGE IV STA (18:27)
[2017-01-05] MEDS ORDERED: ASPIRIN 81 MG CHEW PO STA (18:27)
--- NOTE | 2017-01-05 19:01 | ED ---
General Adult HPI - General Chief complaint: Chest Pain Stated complaint: headache/high BP Time Seen by Provider: 01/05/17 18:19 Source: patient, RN notes reviewed Mode of arrival: ambulatory Limitations: no limitations - History of Present Illness Initial comments: 56-year-old female presents emergency Department with chief complaint of high blood pressure, chest pain, headache. Patient states she's been having on and off chest pain last few weeks she states she is actually admitted the hospital in October for similar symptoms had a stress test which showed no acute abnormality. He told her she just had atypical chest pain. Patient states her blood pressure was elevated today and she believes this is causing her symptoms. Patient did call her primary care physician who told her take half states that she recently has not been on it and she has been more anxious. Patient denies any shortness of breath no fever no chills. She has no history of hyperlipidemia no cardiac history - Related Data Home Medications Medication Instructions Recorded Confirmed Aspirin 81 mg PO DAILY 09/29/15 01/05/17 Hydrochlorothiazide 12.5 mg PO Q48H 09/29/15 01/05/17 Lactulose 6.67 gm PO DAILY PRN 09/29/15 01/05/17 Lisinopril [Zestril] 20 mg PO BID 09/29/15 01/05/17 amLODIPine [Norvasc] 5 mg PO DAILY 09/29/15 01/05/17 LORazepam [Ativan] 1 mg PO BID PRN 11/11/16 01/05/17 Acetaminophen [Tylenol] 650 mg PO BID PRN 01/05/17 01/05/17 Allergies Allergy/AdvReac Type Severity Reaction Status Date / Time No Known Allergies Allergy Verified 01/05/17 19:12 Review of Systems ROS Statement: Those systems with pertinent positive or pertinent negative responses have been documented in the HPI. ROS Other: All systems not noted in ROS Statement are negative. Past Medical History Past Medical History: Hypertension, Osteoarthritis (OA), Pneumonia Additional Past Medical History / Comment(s): hypoglycemia, occasional bilateral tinnitus, UTI, arthritis bilateral hands and in back, chronic low back pain, History of Any Multi-Drug Resistant Organisms: None Reported Past Surgical History: Cholecystectomy, Heart Catheterization, Hernia Repair, Hysterectomy Additional Past Surgical History / Comment(s): Cardiac cath-no treatment, bilateral inguinal hernia repairs, colonoscopy, trach as a infant. Past Anesthesia/Blood Transfusion Reactions: No Reported Reaction Past Psychological History: Depression Smoking Status: Never smoker Past Alcohol Use History: Rare Past Drug Use History: None Reported - Past Family History Father Family Medical History: No Reported History Additional Family Medical History / Comment(s): Father in his 80's. Mother Family Medical History: Cancer Additional Family Medical History / Comment(s): Mother of lung cancer at the age of 38yrs. She was a smoker. General Exam Limitations: no limitations General appearance: alert, in no apparent distress, anxious Head exam: Present: atraumatic, normocephalic, normal inspection Eye exam: Present: normal appearance, PERRL, EOMI. Absent: scleral icterus, conjunctival injection, periorbital swelling ENT exam: Present: normal exam, normal oropharynx, mucous membranes moist Neck exam: Present: normal inspection, full ROM. Absent: tenderness, meningismus, lymphadenopathy Respiratory exam: Present: normal lung sounds bilaterally. Absent: respiratory distress, wheezes, rales, rhonchi, stridor Cardiovascular Exam: Present: normal rhythm, tachycardia, normal heart sounds. Absent: systolic murmur, diastolic murmur, rubs, gallop, clicks GI/Abdominal exam: Present: soft, normal bowel sounds. Absent: distended, tenderness, guarding, rebound, rigid Neurological exam: Present: alert, oriented X3, CN II-XII intact Psychiatric exam: Present: anxious Skin exam: Present: warm, dry, intact, normal color. Absent: rash Course Vital Signs 01/05/17 01/05/17 18:14 19:52 Temperature 99.3 F 98.8 F Pulse Rate 110 H 88 Respiratory 18 16 Rate Blood Pressure 160/80 146/74 O2 Sat by Pulse 98 100 Oximetry EKG Findings - EKG Comments: EKG Findings:: EKG performed at 18:26 normal sinus rhythm with a rate of 98 DE interval 140 QS duration 76 QT/QTC 340/444 Medical Decision Making - Medical Decision Making 56-year-old female presented emergency department for hypertension and intermittent discomfort for weeks and a headache. Patient will pressure is improved. She states her symptoms have resolved with her Ativan. Patient has been offered Ativan for a while states he used to help her. Patient's prior records were reviewed she had a stress test which showed no acute abnormality. Patient will be discharged follow-up with Dr. Garcia return parameters were discussed. - Lab Data Result diagrams: 01/05/17 18:44 01/05/17 18:44 Lab Results 01/05/17 01/05/17 01/05/17 Range/Units 18:44 18:44 18:44 WBC 8.7 (3.8-10.6) k/uL RBC 4.87 (3.80-5.40) m/uL Hgb 13.8 (11.4-16.0) gm/dL Hct 42.4 (34.0-46.0) % MCV 87.1 (80.0-100.0) fL MCH 28.4 (25.0-35.0) pg MCHC 32.7 (31.0-37.0) g/dL RDW 15.4 (11.5-15.5) % Plt Count 288 (150-450) k/uL Neutrophils % 67 % Lymphocytes % 27 % Monocytes % 5 % Eosinophils % 0 % Basophils % 1 % Neutrophils # 5.8 (1.3-7.7) k/uL Lymphocytes # 2.3 (1.0-4.8) k/uL Monocytes # 0.4 (0-1.0) k/uL Eosinophils # 0.0 (0-0.7) k/uL Basophils # 0.1 (0-0.2) k/uL PT (9.0-12.0) sec INR (<1.2) APTT (22.0-30.0) sec D-Dimer (<0.60) mg/L FEU Sodium 143 (137-145) mmol/L Potassium 4.0 (3.5-5.1) mmol/L Chloride 104 (98-107) mmol/L Carbon Dioxide 27 (22-30) mmol/L Anion Gap 12 mmol/L BUN 16 (7-17) mg/dL Creatinine 0.80 (0.52-1.04) mg/dL Est GFR (MDRD) Af Amer >60 (>60 ml/min/1.73 sqM) Est GFR (MDRD) Non-Af >60 (>60 ml/min/1.73 sqM) Glucose 107 H (74-99) mg/dL Calcium 9.9 (8.4-10.2) mg/dL Magnesium 2.1 (1.6-2.3) mg/dL Total Bilirubin 0.3 (0.2-1.3) mg/dL AST 22 (14-36) U/L ALT 55 H (9-52) U/L Alkaline Phosphatase 91 (38-126) U/L Total Creatine Kinase 114 (30-135) U/L CK-MB (CK-2) 0.4 (0.0-2.4) ng/mL CK-MB (CK-2) Rel Index 0.4 Troponin I <0.012 (0.000-0.034) ng/mL Total Protein 7.9 (6.3-8.2) g/dL Albumin 4.7 (3.5-5.0) g/dL Lipase 67 (23-300) U/L 01/05/17 Range/Units 18:44 WBC (3.8-10.6) k/uL RBC (3.80-5.40) m/uL Hgb (11.4-16.0) gm/dL Hct (34.0-46.0) % MCV (80.0-100.0) fL MCH (25.0-35.0) pg MCHC (31.0-37.0) g/dL RDW (11.5-15.5) % Plt Count (150-450) k/uL Neutrophils % % Lymphocytes % % Monocytes % % Eosinophils % % Basophils % % Neutrophils # (1.3-7.7) k/uL Lymphocytes # (1.0-4.8) k/uL Monocytes # (0-1.0) k/uL Eosinophils # (0-0.7) k/uL Basophils # (0-0.2) k/uL PT 10.6 (9.0-12.0) sec INR 1.0 (<1.2) APTT 25.9 (22.0-30.0) sec D-Dimer 0.32 (<0.60) mg/L FEU Sodium (137-145) mmol/L Potassium (3.5-5.1) mmol/L Chloride (98-107) mmol/L Carbon Dioxide (22-30) mmol/L Anion Gap mmol/L BUN (7-17) mg/dL Creatinine (0.52-1.04) mg/dL Est GFR (MDRD) Af Amer (>60 ml/min/1.73 sqM) Est GFR (MDRD) Non-Af (>60 ml/min/1.73 sqM) Glucose (74-99) mg/dL Calcium (8.4-10.2) mg/dL Magnesium (1.6-2.3) mg/dL Total Bilirubin (0.2-1.3) mg/dL AST (14-36) U/L ALT (9-52) U/L Alkaline Phosphatase (38-126) U/L Total Creatine Kinase (30-135) U/L CK-MB (CK-2) (0.0-2.4) ng/mL CK-MB (CK-2) Rel Index Troponin I (0.000-0.034) ng/mL Total Protein (6.3-8.2) g/dL Albumin (3.5-5.0) g/dL Lipase (23-300) U/L Disposition Clinical Impression: Anxiety, Hypertension Disposition: HOME SELF-CARE Condition: Stable Instructions: Hypertension (ED) Additional Instructions: Please return to the Emergency Department if symptoms worsen or any other concerns. Referrals: Camden Rothman MD [Primary Care Provider] - 1-2 days Time of Disposition: 19:59
[2017-01-05 19:03] LABS: Basophils # (A) 0.1 k/uL (0-0.2); Basophils % (A) 1 %; CH 29.1; CHCM 33.6; Eosinophils % (A) 0 %; HCT 42.4 % (34.0-46.0); HDW 2.61; HGB 13.8 gm/dL (11.4-16.0); Luc # (Auto) 0.08; Luc % (Auto) 1; Lymphocytes # (A) 2.3 k/uL (1.0-4.8); Lymphocytes % (A) 27 %; MCH 28.4 pg (25.0-35.0); MCHC 32.7 g/dL (31.0-37.0); MCV 87.1 fL (80.0-100.0); Mean Platelet Volume 7.1; Monocytes # (A) 0.4 k/uL (0-1.0); Monocytes % (A) 5 %; Neutrophils # (A) 5.8 k/uL (1.3-7.7); Neutrophils % (A) 67 %; RBC 4.87 m/uL (3.80-5.40); RDW 15.4 % (11.5-15.5); WBC 8.7 k/uL (3.8-10.6); WBC (Perox) 8.39
[2017-01-05 19:08] LABS: ALT 55 U/L (9-52); AST 22 U/L (14-36); Alkaline Phosphatase 91 U/L (38-126); Anion Gap 12 mmol/L; Blood Urea Nitrogen 16 mg/dL (7-17); Calcium 9.9 mg/dL (8.4-10.2); Carbon Dioxide 27 mmol/L (22-30); Chloride 104 mmol/L (98-107); Glucose 107 mg/dL (74-99); Magnesium 2.1 mg/dL (1.6-2.3); Non-African American GFR(MDRD) >60 (>60 ml/min/1.73 sqM); Sodium 143 mmol/L (137-145); Total Bilirubin 0.3 mg/dL (0.2-1.3); Total Protein 7.9 g/dL (6.3-8.2)
--- NOTE | 2017-01-05 19:13 | XR ---
EXAMINATION TYPE: XR chest 2V DATE OF EXAM: 01/05/2017 COMPARISON: NONE HISTORY: Chest pain TECHNIQUE: Frontal and lateral views of the chest are obtained. FINDINGS: Heart and mediastinum are normal. Lungs are clear. Diaphragm is normal. There are chest le ads. Bony thorax is intact. IMPRESSION: Normal chest
[2017-01-05 19:22] LABS: Partial Thromboplastin Time 25.9 sec (22.0-30.0); Prothrombin Time 10.6 sec (9.0-12.0)
[2017-01-05 19:24] LABS: Creatine Kinase 114 U/L (30-135)
[2017-01-05 19:38] LABS: Creatine Kinase MB 0.4 ng/mL (0.0-2.4); Troponin I <0.012 ng/mL (0.000-0.034)
[2017-01-05 19:53] VITALS: BP 146/74; PULSE 88; RESP 16; TEMP 98.8
== END 2017-01-05 20:31 | disposition home or self-care (01) ==
LOC: EC 17:51
DX: R07.9 Chest pain, unspecified (principal); I10 Essential (primary) hypertension; F41.9 Anxiety disorder, unspecified; M19.90 Unspecified osteoarthritis, unspecified site; F32.9 Major depressive disorder, single episode, unspecified; Z79.82 Long term (current) use of aspirin; Z79.899 Other long term (current) drug therapy
CPT/HCPCS: 36415; 93005; 85379; 80053; 82550; 82553; 83690; 83735; 84484; 85025; 85610; 85730; 71020; 99285; 96374; J2060

== ENCOUNTER → 2017-02-17 | Outpatient (CLI) | payer MEDICARE ==
--- NOTE | 2017-02-17 08:40 | XR ---
EXAMINATION TYPE: XR thoracic spine 2V DATE OF EXAM: 02/17/2017 COMPARISON: NONE HISTORY: Back pain Alignment is anatomic. There is no compression deformities. Hypertrophic change and mild multilevel degenerative disc disease seen. No compression deformities. Pedicles intact. IMPRESSION: 1. Multilevel mild degenerative disc disease.
--- NOTE | 2017-02-18 07:32 | MM ---
Reason for exam: screening (asymptomatic). Last mammogram was performed 1 year ago. History: Patient is postmenopausal. Physical Findings: A clinical breast exam by your physician is recommended on an annual basis and results should be correlated with mammographic findings. MG Screening Mammo w CAD Bilateral CC and MLO view(s) were taken. XCCL view(s) were taken of the left breast. Prior study comparison: February 17, 2016, bilateral MG 3d screening mammo w/cad. September 12, 2014, bilateral MG screening mammo w CAD. There are scattered fibroglandular densities. Finding: There is a stable mass in the central position of the left breast. No significant changes in finding since February 17, 2016 and September 12, 2014. ASSESSMENT: Benign, BI-RAD 2 RECOMMENDATION: Routine screening mammogram of both breasts in 1 year.
== END | disposition home or self-care (01) ==
LOC: RADMAMWWP 08:00
PROVIDERS: ATTEND Internal Medicine
DX: Z12.31 Encounter for screening mammogram for malignant neoplasm of breast (principal); M51.34 Other intervertebral disc degeneration, thoracic region; M19.90 Unspecified osteoarthritis, unspecified site
CPT/HCPCS: 72070; G0202

== ENCOUNTER → 2018-01-09 | Outpatient (CLI) | payer MEDICARE ==
[2018-01-09 07:40] LABS: Basophils % (A) 0 %; Eosinophils % (A) 0 %; HCT 39.3 % (34.0-46.0); HGB 13.3 gm/dL (11.4-16.0); Lymphocytes # (A) 2.6 k/uL (1.0-4.8); Lymphocytes % (A) 28 %; MCH 28.5 pg (25.0-35.0); MCHC 33.8 g/dL (31.0-37.0); MCV 84.2 fL (80.0-100.0); Monocytes # (A) 0.4 k/uL (0-1.0); Monocytes % (A) 5 %; Neutrophils # (A) 6.1 k/uL (1.3-7.7); Neutrophils % (A) 66 %; Platelet Count 274 k/uL (150-450); RBC 4.67 m/uL (3.80-5.40); RDW 13.9 % (11.5-15.5); WBC 9.2 k/uL (3.8-10.6)
[2018-01-09 08:19] LABS: Albumin 4.2 g/dL (3.5-5.0); Calcium 9.9 mg/dL (8.4-10.2); Potassium 4.1 mmol/L (3.5-5.1); Total Bilirubin 0.5 mg/dL (0.2-1.3); Total Protein 7.3 g/dL (6.3-8.2)
[2018-01-09 08:29] LABS: Appearance,Urine Clear (Clear); Bilirubin,Urine Negative (Negative); Blood,Urine Trace (Negative); Color,Urine Yellow; Glucose,Urine (UA) Negative (Negative); Ketones,Urine Negative (Negative); Leukocyte Esterase,Urine Large (Negative); Mucus,Urine Rare /hpf; Nitrite,Urine Negative (Negative); Protein,Urine Trace (Negative); RBC,Urine 3 /hpf (0-5); Specific Gravity,Urine 1.024 (1.001-1.035); Squamous Epithelial Cell,Urine 8 /hpf (0-4); Urobilinogen,Urine <2.0 mg/dL (<2.0); WBC,Urine 10 /hpf (0-5)
[2018-01-09 13:14] LABS: Hemoglobin A1C 5.5 % (4.0-6.0)
[2018-01-09 16:29] LABS: Vitamin D 25 Hydroxy 24.4 ng/mL (30.0-100.0)
[2018-01-09 17:53] LABS: Hepatitis C IgG Antibody Non-Reactive (Non-Reactive)
== END | disposition home or self-care (01) ==
LOC: LABWHC1 07:06
PROVIDERS: ATTEND Internal Medicine
DX: G62.9 Polyneuropathy, unspecified (principal); I10 Essential (primary) hypertension; E55.9 Vitamin D deficiency, unspecified; Z13.9 Encounter for screening, unspecified
CPT/HCPCS: 36415; 80053; 80061; 81001; 82175; 82306; 82570; 82607; 83036; 83655; 83825; 84443; 85025; 86803

== ENCOUNTER → 2018-01-12 | Outpatient (CLI) | payer MEDICARE, OTHER ==
--- NOTE | 2018-01-12 10:42 | US ---
EXAMINATION TYPE: US thyroid st tissue head/neck DATE OF EXAM: 01/12/2018 COMPARISON: 08/12/2016 CLINICAL HISTORY: E04.1 Thyroid Nodule. GLAND SIZE: Right Lobe: 4.5 x 1.3 x 1.9 cm Overall Parenchyma: homogenous Left Lobe: 4.6 x 1.2 x 1.3 cm Overall Parenchyma: homogeneous Isthmus Thickness: 0.2 cm NODULES RIGHT: # of nodules measured on right: 3 1. 1.6 X 0.7 x 1.3 cm cystic nodule at the upper pole with well-defined margins; . This nodule is wider than tall and shows no intranodular vascularity. Prior size: 1.3 x 0.6 x 1.1 cm 2. 0.8 X 0.6 x 0.7 cm cystic nodule at the lower pole with well-defined margins; . This nodule is w ider than tall and shows no intranodular vascularity. Prior size: 0.7 x 0.5 x 0.5 cm 3. 0.5 X 0.3 x 0.4 cm cystic nodule at the mid pole with well-defined margins; . This nodule is wid er than tall and shows no intranodular vascularity. Prior size: 0.6 cm LEFT: # of nodules measured on left: 3 1. 1.1 X 0.8 x 0.8 cm complex cystic nodule at the lower pole with well-defined margins; . This no dule is wider than tall and shows intranodular vascularity. Prior size: 1.0 x 0.7 x 0.7 cm 2. 1.3 X 0.7 x 1.1 cm isoechoic solid nodule at the mid/upper pole with well-defined margins; with a shadowing calcification. This nodule is wider than tall and shows intranodular vascularity. Prior size: 1.1 x 0.7 x 0.9 cm 3. 0.6 X 0.3 x 0.5 cm mixed nodule at the mid pole with well-defined margins; . This nodule is wide r than tall and shows no intranodular vascularity. Prior size: no previous ISTHMUS: # of nodules measured in the isthmus: 0 IMPRESSION: 1. Slight increase in size of the mid to upper left thyroid nodule. 2. Slight increase in size of the right upper pole nodule
== END | disposition home or self-care (01) ==
LOC: RADUSWWP 08:35
PROVIDERS: ATTEND Internal Medicine
DX: E04.2 Nontoxic multinodular goiter (principal)
CPT/HCPCS: 76536

== ENCOUNTER 2018-01-16 14:57 | Emergency (ER) | payer OTHER, MEDICARE ==
[2018-01-16 15:37] VITALS: BP 139/72; PULSE 74; RESP 18; TEMP 98.3
[2018-01-16] MEDS ORDERED: IBUPROFEN 600 MG TAB PO STA (16:02)
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
== END 2018-01-16 17:00 | disposition home or self-care (01) ==
LOC: EC 14:57
DX: S00.03XA Contusion of scalp, initial encounter (principal); I10 Essential (primary) hypertension; M19.90 Unspecified osteoarthritis, unspecified site; Z95.818 Presence of other cardiac implants and grafts; Z79.82 Long term (current) use of aspirin; Z79.899 Other long term (current) drug therapy; V48.6XXA Car passenger injured in noncollision transport accident in traffic accident, initial encounter; Y92.410 Unspecified street and highway as the place of occurrence of the external cause
CPT/HCPCS: 70450; 99284

== ENCOUNTER → 2018-12-28 | Outpatient (CLI) | payer MEDICARE, OTHER ==
[2018-12-28 07:32] LABS: Basophils % (A) 0 %; Eosinophils # (A) 0.2 k/uL (0-0.7); Eosinophils % (A) 3 %; HCT 36.7 % (34.0-46.0); HGB 11.9 gm/dL (11.4-16.0); Lymphocytes % (A) 35 %; MCHC 32.4 g/dL (31.0-37.0); MCV 86.3 fL (80.0-100.0); Mean Platelet Volume 6.6; Monocytes # (A) 0.3 k/uL (0-1.0); Monocytes % (A) 5 %; Neutrophils # (A) 3.2 k/uL (1.3-7.7); Neutrophils % (A) 56 %; Platelet Count 219 k/uL (150-450); RBC 4.26 m/uL (3.80-5.40); RDW 14.6 % (11.5-15.5); WBC 5.8 k/uL (3.8-10.6)
[2018-12-28 08:01] LABS: Appearance,Urine Clear (Clear); Bilirubin,Urine Negative (Negative); Blood,Urine Trace (Negative); Color,Urine Yellow; Glucose,Urine (UA) Negative (Negative); Ketones,Urine Negative (Negative); Leukocyte Esterase,Urine Large (Negative); Mucus,Urine Rare /hpf; Nitrite,Urine Negative (Negative); Protein,Urine Negative (Negative); RBC,Urine 4 /hpf (0-5); Specific Gravity,Urine 1.029 (1.001-1.035); Squamous Epithelial Cell,Urine 9 /hpf (0-4); Urobilinogen,Urine <2.0 mg/dL (<2.0); WBC,Urine 9 /hpf (0-5)
[2018-12-28 11:46] LABS: African American GFR (CKD) 81.7 (60.0-200.0); Anion Gap 6.3 mmol/L (4.00-12.00); BUN/Creat Ratio 28.89 Ratio (12.00-20.00); Calcium 9.1 mg/dL (8.7-10.3); Carbon Dioxide 28.7 mmol/L (21.6-31.8); LDL Cholesterol,Calculated 105.2 mg/dL (0.0-131.0); Total Bilirubin 0.3 mg/dL (0.3-1.2); VLDL Calculation 25.8 mg/dL (5.00-40.00)
[2018-12-28 13:05] LABS: Vitamin D 25 Hydroxy 23.6 ng/mL (30.0-100.0)
[2018-12-28 14:17] LABS: Hepatitis C IgG Antibody Non-Reactive (Non-Reactive)
== END | disposition home or self-care (01) ==
LOC: LABWHC1 06:49
PROVIDERS: ATTEND Internal Medicine
DX: I10 Essential (primary) hypertension (principal); E04.9 Nontoxic goiter, unspecified; E55.9 Vitamin D deficiency, unspecified; Z13.9 Encounter for screening, unspecified
CPT/HCPCS: 36415; 80053; 80061; 81001; 82306; 84439; 84443; 84481; 85025; 86803; 87086

== ENCOUNTER → 2019-01-01 | Outpatient (CLI) | payer MEDICARE, OTHER ==
--- NOTE | 2019-01-01 08:45 | US ---
EXAMINATION TYPE: US thyroid st tissue head/neck DATE OF EXAM: 01/01/2019 COMPARISON: January 12, 2018 CLINICAL HISTORY: E04.9 Nontoxic goiter, unspecified. Thyroid nodules. GLAND SIZE: Right Lobe: 4.7 x 1.3 x 1.5 cm Overall Parenchyma: homogenous Left Lobe: 4.0 x 1.1 x 1.6 cm Overall Parenchyma: homogeneous Isthmus Thickness: .3 cm NODULES RIGHT: # of nodules measured on right: 3 1. 1.7 X .6 x 1.3 cm cystic nodule at the upper pole with well-defined margins; . This nodule is w ider than tall and shows no intranodular vascularity. Prior size: 1.6 x .7 x 1.3 cm 2. .4 X .2 x .5 cm cystic nodule at the mid pole with well-defined margins; . This nodule is wider than tall and shows no intranodular vascularity. Prior size: .5 x .3 x .4 cm 3. .6 X .5 x .6 cm cystic nodule at the lower pole with well-defined margins; . This nodule is wide r than tall and shows no intranodular vascularity. Prior size: .8 x .6 x .7 cm LEFT: # of nodules measured on left: 4 1. 1.3 X .7 x 1.1 cm isoechoic solid nodule at the upper pole with well-defined margins; with a sha dowing calcification. This nodule is wider than tall and shows intranodular vascularity. Prior size: 1.3 x .7 x 1.1 cm 2. .6 X .4 x .5 cm cystic nodule at the lower pole with well-defined margins; . This nodule is wide r than tall and shows no intranodular vascularity. Prior size: .6 x .3 x .5 cm 3. .5 X .3 x .5 cm cystic nodule at the lower pole with well-defined margins; . This nodule is wide r than tall and shows no intranodular vascularity. Prior size No previous 4. .6 X .3 x .9 cm cystic nodule at the lower pole with well-defined margins; . This nodule is wide r than tall and shows no intranodular vascularity. Prior size No previous. ISTHMUS: # of nodules measured in the isthmus: 0 Bilateral neck scanned, no evidence of lymphadenopathy. IMPRESSION: Nonspecific nodularity noted above.
== END | disposition home or self-care (01) ==
LOC: RADUSWWP 07:44
PROVIDERS: ATTEND Internal Medicine
DX: E04.2 Nontoxic multinodular goiter (principal)
CPT/HCPCS: 76536

== ENCOUNTER → 2019-04-12 | Outpatient (CLI) | payer MEDICARE ==
--- NOTE | 2019-04-13 11:20 | MM ---
Reason for exam: screening (asymptomatic). Last mammogram was performed 1 year ago. History: Patient is postmenopausal. Physical Findings: A clinical breast exam by your physician is recommended on an annual basis and results should be correlated with mammographic findings. MG 3D Screening Mammo W/Cad Bilateral CC and MLO view(s) were taken. XCCL view(s) were taken of the right breast. Prior study comparison: March 31, 2018, bilateral MG 3d screening mammo w/cad. February 17, 2017, bilateral MG screening mammo w CAD. There are scattered fibroglandular densities. There is no discrete abnormality. No significant changes when compared with prior studies. ASSESSMENT: Negative, BI-RAD 1 RECOMMENDATION: Routine screening mammogram of both breasts in 1 year.
== END | disposition home or self-care (01) ==
LOC: RADMAMWWP 08:09
PROVIDERS: ATTEND Internal Medicine
DX: Z12.31 Encounter for screening mammogram for malignant neoplasm of breast (principal)
CPT/HCPCS: 77063; 77067

== ENCOUNTER 2019-11-08 17:32 | Emergency (ER) | payer MEDICARE ==
[2019-11-08 17:41] VITALS: RESP 18; TEMP 98.6
[2019-11-08 18:31] LABS: Basophils % (A) 0 %; Eosinophils % (A) 0 %; HCT 39.7 % (34.0-46.0); HGB 12.8 gm/dL (11.4-16.0); Lymphocytes % (A) 22 %; MCH 27.3 pg (25.0-35.0); MCHC 32.3 g/dL (31.0-37.0); MCV 84.6 fL (80.0-100.0); Mean Platelet Volume 7.1; Monocytes # (A) 0.4 k/uL (0-1.0); Monocytes % (A) 4 %; Neutrophils # (A) 6.5 k/uL (1.3-7.7); Neutrophils % (A) 73 %; Platelet Count 256 k/uL (150-450); RBC 4.69 m/uL (3.80-5.40); RDW 14.2 % (11.5-15.5)
[2019-11-08 18:42] LABS: African American GFR (CKD) >90 (>60 ml/min/1.73 sqM); Anion Gap 10 mmol/L; Blood Urea Nitrogen 19 mg/dL (7-17); Calcium 9.7 mg/dL (8.4-10.2); Carbon Dioxide 25 mmol/L (22-30); Chloride 101 mmol/L (98-107); Glucose 121 mg/dL (74-99); Non-African American GFR(CKD) 90 (>60 ml/min/1.73 sqM); Potassium 3.8 mmol/L (3.5-5.1); Sodium 136 mmol/L (137-145)
[2019-11-08] MEDS ORDERED: hydrALAZINE HCL 20 MG/ML 1 ML VIAL IVP STA (18:50)
--- NOTE | 2019-11-08 18:50 | ED ---
Recheck HPI - General Chief Complaint: Recheck/Abnormal Lab/Rx Stated Complaint: High BP Time Seen by Provider: 11/08/19 17:58 Source: patient Mode of arrival: ambulatory - History of Present Illness Initial Comments: Patient is a 59-year-old female with history of anxiety presenting to emergency Department with a chief complaint of high blood pressure. Patient states she is prescribed anxiolytics but does not like to take them because it makes her "groggy." Patient states she woke up this morning and obtain a blood pressure in the 180s systolic. Patient states otherwise she has been taking her antihypertensive medication as prescribed. She denies any chest pain, shortness of breath, lightheadedness, dizziness, nausea vomiting. Denies any urinary symptoms. Denies hematuria, hematochezia or melena. - Related Data Home Medications Medication Instructions Recorded Confirmed Aspirin 81 mg PO DAILY 09/29/15 01/05/17 Hydrochlorothiazide 12.5 mg PO Q48H 09/29/15 01/05/17 Lactulose 6.67 gm PO DAILY PRN 09/29/15 01/05/17 Lisinopril [Zestril] 20 mg PO BID 09/29/15 01/05/17 amLODIPine [Norvasc] 5 mg PO DAILY 09/29/15 01/05/17 LORazepam [Ativan] 1 mg PO BID PRN 11/11/16 01/05/17 Acetaminophen [Tylenol] 650 mg PO BID PRN 01/05/17 01/05/17 Previous Rx's Medication Instructions Recorded ALPRAZolam [Xanax] 0.5 mg PO Q8HR PRN 3 Days #9 tab 11/08/19 Allergies Allergy/AdvReac Type Severity Reaction Status Date / Time No Known Allergies Allergy Verified 11/08/19 17:41 Review of Systems ROS Statement: Those systems with pertinent positive or pertinent negative responses have been documented in the HPI. ROS Other: All systems not noted in ROS Statement are negative. Past Medical History Past Medical History: Hypertension, Osteoarthritis (OA), Pneumonia Additional Past Medical History / Comment(s): hypoglycemia, occasional bilateral tinnitus, UTI, arthritis bilateral hands and in back, chronic low back pain, History of Any Multi-Drug Resistant Organisms: None Reported Past Surgical History: Cholecystectomy, Heart Catheterization, Hernia Repair, Hysterectomy Additional Past Surgical History / Comment(s): Cardiac cath-no treatment, bilateral inguinal hernia repairs, colonoscopy, trach as a infant. Past Anesthesia/Blood Transfusion Reactions: No Reported Reaction Past Psychological History: Anxiety, Depression Smoking Status: Never smoker Past Alcohol Use History: Rare Past Drug Use History: None Reported - Past Family History Father Family Medical History: No Reported History Additional Family Medical History / Comment(s): Father in his 80's. Mother Family Medical History: Cancer Additional Family Medical History / Comment(s): Mother of lung cancer at the age of 38yrs. She was a smoker. General Exam Limitations: no limitations General appearance: alert, in no apparent distress Head exam: Present: atraumatic, normocephalic, normal inspection Eye exam: Present: normal appearance, PERRL, EOMI Pupils: Present: normal accommodation ENT exam: Present: normal exam, normal oropharynx, mucous membranes moist Neck exam: Present: normal inspection, full ROM Respiratory exam: Present: normal lung sounds bilaterally. Absent: respiratory distress, wheezes Cardiovascular Exam: Present: regular rate, normal rhythm, normal heart sounds Extremities exam: Present: normal inspection, full ROM, normal capillary refill, other (+2 ulnar and radial pulses. +2 dorsalis pedis posterior tibialis bilaterally.). Absent: tenderness Back exam: Present: normal inspection, full ROM. Absent: tenderness Neurological exam: Present: alert, oriented X3, CN II-XII intact, normal gait Psychiatric exam: Present: normal affect, normal mood Skin exam: Present: warm, dry, intact, normal color Course Vital Signs 11/08/19 11/08/19 11/08/19 17:37 19:07 19:31 Temperature 98.6 F Pulse Rate 106 H 88 Respiratory 18 Rate Blood Pressure 173/95 180/94 148/79 O2 Sat by Pulse 98 Oximetry Medical Decision Making - Medical Decision Making Patient is 59-year-old female presenting to emergency Department with a chief complaint of high blood pressure. Patient appears anxious on evaluation. She is prescribed anxiolytics but decided not to take them. Denies monitoring blood pressure daily basis but when she checked it today it was high. States she also primary care and almost weekly basis. I gave the patient an anxiolytic and an antihypertensive. Reevaluation she feels more comfortable. CBC CMP is unremarkable. UA shows trace amount of ketones. I do not suspect any and organ damage. I suspect the asymptomatically hypertension is secondary to anxiety. Patient will be discharged with anxiolytics for less than 3 days. Patient advised about the side effects to medication. She is to follow with his primary care tomorrow. Return parameters were thoroughly discussed the patient was understanding and agreeable. Case discussed with physician. EKG shows sinus r hythm with inverted T waves which are also present in her previous EKG. - Lab Data Result diagrams: 11/08/19 18:20 11/08/19 18:20 Lab Results 11/08/19 11/08/19 11/08/19 Range/Units 18:20 18:20 18:50 WBC 9.0 (3.8-10.6) k/uL RBC 4.69 (3.80-5.40) m/uL Hgb 12.8 (11.4-16.0) gm/dL Hct 39.7 (34.0-46.0) % MCV 84.6 (80.0-100.0) fL MCH 27.3 (25.0-35.0) pg MCHC 32.3 (31.0-37.0) g/dL RDW 14.2 (11.5-15.5) % Plt Count 256 (150-450) k/uL Neutrophils % 73 % Lymphocytes % 22 % Monocytes % 4 % Eosinophils % 0 % Basophils % 0 % Neutrophils # 6.5 (1.3-7.7) k/uL Lymphocytes # 2.0 (1.0-4.8) k/uL Monocytes # 0.4 (0-1.0) k/uL Eosinophils # 0.0 (0-0.7) k/uL Basophils # 0.0 (0-0.2) k/uL Sodium 136 L (137-145) mmol/L Potassium 3.8 (3.5-5.1) mmol/L Chloride 101 (98-107) mmol/L Carbon Dioxide 25 (22-30) mmol/L Anion Gap 10 mmol/L BUN 19 H (7-17) mg/dL Creatinine 0.74 (0.52-1.04) mg/dL Est GFR (CKD-EPI)AfAm >90 (>60 ml/min/1.73 sqM) Est GFR (CKD-EPI)NonAf 90 (>60 ml/min/1.73 sqM) Glucose 121 H (74-99) mg/dL Calcium 9.7 (8.4-10.2) mg/dL Urine Color Yellow Urine Appearance Clear (Clear) Urine pH 6.5 (5.0-8.0) Ur Specific [place] 1.022 (1.001-1.035) Urine Protein Trace H (Negative) Urine Glucose (UA) Negative (Negative) Urine Ketones Negative (Negative) Urine Blood Small H (Negative) Urine Nitrite Negative (Negative) Urine Bilirubin Negative (Negative) Urine Urobilinogen <2.0 (<2.0) mg/dL Ur Leukocyte Esterase Trace H (Negative) Urine RBC 9 H (0-5) /hpf Urine WBC 4 (0-5) /hpf Ur Squamous Epith Cells 3 (0-4) /hpf Urine Mucus Rare H (None) /hpf Disposition Clinical Impression: Hypertensive urgency, Acute adjustment disorder with anxiety Disposition: HOME SELF-CARE Condition: Stable Instructions (If sedation given, give patient instructions): Hypertension (ED) Additional Instructions: Follow-up with her primary care. Do not drive or operate heavy machinery when taking medication. Return to emergency department if symptoms worsen. Prescriptions: ALPRAZolam [Xanax] 0.5 mg PO Q8HR PRN 3 Days #9 tab PRN Reason: Anxiety Is patient prescribed a controlled substance at d/c from ED?: No Referrals: Camden Rothman MD [Primary Care Provider] - 1-2 days Time of Disposition: 19:43
[2019-11-08 19:11] LABS: Appearance,Urine Clear (Clear); Bilirubin,Urine Negative (Negative); Blood,Urine Small (Negative); Color,Urine Yellow; Glucose,Urine (UA) Negative (Negative); Ketones,Urine Negative (Negative); Leukocyte Esterase,Urine Trace (Negative); Mucus,Urine Rare /hpf; Nitrite,Urine Negative (Negative); PH, Urine 6.5 (5.0-8.0); Protein,Urine Trace (Negative); RBC,Urine 9 /hpf (0-5); Specific Gravity,Urine 1.022 (1.001-1.035); Squamous Epithelial Cell,Urine 3 /hpf (0-4); Urobilinogen,Urine <2.0 mg/dL (<2.0); WBC,Urine 4 /hpf (0-5)
[2019-11-08 19:32] VITALS: BP 148/79; PULSE 88
[2019-11-08] MEDS ORDERED: ALPRAZolam 0.5 MG TAB PO STA (19:43)
== END 2019-11-08 19:50 | disposition home or self-care (01) ==
LOC: EC 17:32
DX: I16.0 Hypertensive urgency (principal); F43.22 Adjustment disorder with anxiety; I10 Essential (primary) hypertension; F41.9 Anxiety disorder, unspecified; F32.9 Major depressive disorder, single episode, unspecified; Z79.82 Long term (current) use of aspirin; Z79.899 Other long term (current) drug therapy
CPT/HCPCS: 36415; 93005; 80048; 85025; 81001; 99283; 96374; J0360

== ENCOUNTER → 2020-07-28 | Outpatient (CLI) | payer MEDICARE ==
--- NOTE | 2020-07-29 11:14 | MM ---
Reason for exam: screening (asymptomatic). Last mammogram was performed 1 year and 4 months ago. History: Patient is postmenopausal. Physical Findings: A clinical breast exam by your physician is recommended on an annual basis and results should be correlated with mammographic findings. MG Screening Mammo w CAD Bilateral CC and MLO view(s) were taken. Prior study comparison: April 12, 2019, bilateral MG 3d screening mammo w/cad. March 31, 2018, bilateral MG 3d screening mammo w/cad. There are scattered fibroglandular densities. There is chronic nodularity in the left breast. There is no discrete abnormality. ASSESSMENT: Benign, BI-RAD 2 RECOMMENDATION: Routine screening mammogram of both breasts in 1 year.
== END | disposition home or self-care (01) ==
LOC: RADMAMWWP 07:46
PROVIDERS: ATTEND Internal Medicine
DX: Z12.31 Encounter for screening mammogram for malignant neoplasm of breast (principal)
CPT/HCPCS: 77067

== ENCOUNTER → 2020-10-03 | Outpatient (CLI) | payer MEDICARE ==
--- NOTE | 2020-10-03 11:38 | CT ---
EXAMINATION TYPE: CT abdomen pelvis w con DATE OF EXAM: 10/03/2020 COMPARISON: 05/03/2016 HISTORY: Right lower quadrant pain, right groin are CT DLP: 640.0 mGycm Automated exposure control for dose reduction was used. TECHNIQUE: Helical acquisition of images was performed from the lung bases through the pelvis. CONTRAST: Performed with Oral Contrast and with IV Contrast, patient injected with 100 mL of Isovue 300. FINDINGS: The visualized lung bases are clear. There is surgical absence of the gallbladder and no biliary ductal dilatation. There is no focal mass or organomegaly involving the liver, pancreas, spleen or adrenal glands. The kidneys excrete contrast promptly and symmetrically and there is no solid renal mass or hydroneph rosis. There is no retroperitoneal adenopathy or hemorrhage in the caliber of the abdominal aorta is normal. The bowel loops are normal in caliber bowel obstruction. There is no free intraperitoneal air or flui d. No inflammatory changes are identified within the mesentery. There is no pelvic adenopathy, mass, abscess or free fluid. There are surgical absence of uterus. The osseous structures are grossly intact. IMPRESSION: No significant abnormality seen.. Incidental note is made of cholecystectomy and hysterectomy.
== END | disposition home or self-care (01) ==
LOC: RADCTMAIN 09:20
PROVIDERS: ATTEND Family Medicine
DX: R10.31 Right lower quadrant pain (principal); Z90.49 Acquired absence of other specified parts of digestive tract; Z90.710 Acquired absence of both cervix and uterus
CPT/HCPCS: 82565; 84520; 74177; 36415; Q9967

== ENCOUNTER 2020-12-23 10:51 | Emergency (ER) | payer MEDICARE ==
[2020-12-23 10:55] VITALS: RESP 18; TEMP 97.9
[2020-12-23] MEDS ORDERED: SODIUM CHLORIDE 0.9% 1,000 ML IV STA (11:33)
[2020-12-23] MEDS ORDERED: FAMOTIDINE 20 MG/2 ML VIAL IV STA (11:34)
--- NOTE | 2020-12-23 11:37 | ED ---
General Adult HPI - General Chief complaint: Abdominal Pain Stated complaint: abd pain Time Seen by Provider: 12/23/20 11:20 Source: patient, RN notes reviewed Mode of arrival: ambulatory Limitations: no limitations - History of Present Illness Initial comments: Patient is a pleasant 60-year-old female presenting to the emergency Department with complaints of abdominal discomfort. Onset of symptoms was over a week ago. Patient did see her doctor and was given Augmentin with concern for possible diverticulitis. Patient states symptoms continue despite this. Patient went back to the office today and they advised to come to the emergency department for computed tomography scan. Patient does have history of similar symptoms previously once also associated with diverticulitis. Patient has minimal loose stools. No constipation. No nausea vomiting. No fever. Discomfort is mostly lower abdomen. - Related Data Home Medications Medication Instructions Recorded Confirmed Aspirin 81 mg PO DAILY 09/29/15 12/23/20 Hydrochlorothiazide 12.5 mg PO DAILY 09/29/15 12/23/20 [hydroCHLOROthiazide] Lactulose 10 gm PO DAILY PRN 09/29/15 12/23/20 amLODIPine [Norvasc] 5 mg PO BID 09/29/15 12/23/20 lisinopriL [Zestril] 20 mg PO BID 09/29/15 12/23/20 Acetaminophen [Tylenol] 650 mg PO BID PRN 01/05/17 12/23/20 Amoxic-Pot Clav 500-125 mg 1 tab PO TID 12/23/20 12/23/20 [Augmentin 500-125 mg] Cholecalciferol [Vitamin D3 (25 50 mcg PO DAILY 12/23/20 12/23/20 Mcg = 1000 Iu)] Omeprazole [PriLOSEC] 20 mg PO AC-BRKFST 12/23/20 12/23/20 Previous Rx's Medication Instructions Recorded ALPRAZolam [Xanax] 0.5 mg PO Q8HR PRN 3 Days #9 tab 11/08/19 Dicyclomine [Bentyl] 20 mg PO QID PRN #15 tablet 12/23/20 Allergies Allergy/AdvReac Type Severity Reaction Status Date / Time No Known Allergies Allergy Verified 12/23/20 13:24 Review of Systems ROS Statement: Those systems with pertinent positive or pertinent negative responses have been documented in the HPI. ROS Other: All systems not noted in ROS Statement are negative. Constitutional: Denies: fever Eyes: Denies: eye pain ENT: Denies: ear pain Respiratory: Denies: cough Cardiovascular: Denies: chest pain Endocrine: Denies: fatigue Gastrointestinal: Reports: as per HPI, abdominal pain. Denies: nausea, vomiting Genitourinary: Denies: dysuria Musculoskeletal: Denies: back pain Skin: Denies: rash Neurological: Denies: weakness Past Medical History Past Medical History: Hypertension, Osteoarthritis (OA), Pneumonia Additional Past Medical History / Comment(s): hypoglycemia, occasional bilateral tinnitus, UTI, arthritis bilateral hands and in back, chronic low back pain, History of Any Multi-Drug Resistant Organisms: None Reported Past Surgical History: Cholecystectomy, Heart Catheterization, Hernia Repair, Hysterectomy Additional Past Surgical History / Comment(s): Cardiac cath-no treatment, bilateral inguinal hernia repairs, colonoscopy, trach as a . Past Anesthesia/Blood Transfusion Reactions: No Reported Reaction Past Psychological History: Anxiety, Depression Smoking Status: Never smoker Past Alcohol Use History: Rare Past Drug Use History: None Reported - Past Family History Father Family Medical History: No Reported History Additional Family Medical History / Comment(s): Father in his 80's. Mother Family Medical History: Cancer Additional Family Medical History / Comment(s): Mother of lung cancer at the age of 38yrs. She was a smoker. General Exam Limitations: no limitations General appearance: alert, in no apparent distress Head exam: Present: normocephalic Eye exam: Present: normal appearance Neck exam: Present: normal inspection Respiratory exam: Present: normal lung sounds bilaterally Cardiovascular Exam: Present: regular rate, normal rhythm Expanded Peripheral pulses: 2+: Dorsalis Pedis (R), Dorsalis Pedis (L) GI/Abdominal exam: Present: soft, tenderness (Mild tenderness lower abdomen and right upper quadrant), normal bowel sounds. Absent: distended, guarding, rebound, rigid, pulsatile mass Extremities exam: Present: normal inspection Neurological exam: Present: alert Psychiatric exam: Present: normal affect, normal mood Skin exam: Present: normal color Course Vital Signs 12/23/20 10:52 Temperature 97.9 F Pulse Rate 88 Respiratory 18 Rate Blood Pressure 151/75 O2 Sat by Pulse 100 Oximetry EKG Findings - EKG Comments: EKG Findings:: Normal sinus rhythm with rate of 74. CT 140. QRS 82. QT 392. QTC 435. Normal axis. Normal QRS. No acute ST change. Medical Decision Making - Medical Decision Making Patient reevaluated and resting comfortably at bedside. Patient updated on results and need for follow-up. - Lab Data Result diagrams: 12/23/20 11:37 12/23/20 11:37 Lab Results 12/23/20 12/23/20 12/23/20 Range/Units 11:37 11:37 11:37 WBC 6.7 (3.8-10.6) k/uL RBC 4.70 (3.80-5.40) m/uL Hgb 13.4 (11.4-16.0) gm/dL Hct 39.5 (34.0-46.0) % MCV 84.1 (80.0-100.0) fL MCH 28.5 (25.0-35.0) pg MCHC 33.8 (31.0-37.0) g/dL RDW 14.3 (11.5-15.5) % Plt Count 239 (150-450) k/uL MPV 7.1 Neutrophils % 58 % Lymphocytes % 33 % Monocytes % 5 % Eosinophils % 2 % Basophils % 1 % Neutrophils # 3.9 (1.3-7.7) k/uL Lymphocytes # 2.2 (1.0-4.8) k/uL Monocytes # 0.3 (0-1.0) k/uL Eosinophils # 0.1 (0-0.7) k/uL Basophils # 0.0 (0-0.2) k/uL PT (9.0-12.0) sec INR (<1.2) APTT (22.0-30.0) sec Sodium 140 (137-145) mmol/L Potassium 4.3 (3.5-5.1) mmol/L Chloride 105 (98-107) mmol/L Carbon Dioxide 27 (22-30) mmol/L Anion Gap 8 mmol/L BUN 20 H (7-17) mg/dL Creatinine 0.71 (0.52-1.04) mg/dL Est GFR (CKD-EPI)AfAm >90 (>60 ml/min/1.73 sqM) Est GFR (CKD-EPI)NonAf >90 (>60 ml/min/1.73 sqM) Glucose 127 H (74-99) mg/dL Calcium 9.9 (8.4-10.2) mg/dL Total Bilirubin 0.3 (0.2-1.3) mg/dL AST 28 (14-36) U/L ALT 32 (4-34) U/L Alkaline Phosphatase 125 (38-126) U/L Troponin I (0.000-0.034) ng/mL Total Protein 7.1 (6.3-8.2) g/dL Albumin 4.3 (3.5-5.0) g/dL Amylase 53 (30-110) U/L Lipase 108 (23-300) U/L Urine Color Yellow Urine Appearance Clear (Clear) Urine pH 6.0 (5.0-8.0) Ur Specific [place] 1.018 (1.001-1.035) Urine Protein Negative (Negative) Urine Glucose (UA) Negative (Negative) Urine Ketones Negative (Negative) Urine Blood Negative (Negative) Urine Nitrite Negative (Negative) Urine Bilirubin Negative (Negative) Urine Urobilinogen <2.0 (<2.0) mg/dL Ur Leukocyte Esterase Negative (Negative) 12/23/20 12/23/20 Range/Units 11:37 11:37 WBC (3.8-10.6) k/uL RBC (3.80-5.40) m/uL Hgb (11.4-16.0) gm/dL Hct (34.0-46.0) % MCV (80.0-100.0) fL MCH (25.0-35.0) pg MCHC (31.0-37.0) g/dL RDW (11.5-15.5) % Plt Count (150-450) k/uL MPV Neutrophils % % Lymphocytes % % Monocytes % % Eosinophils % % Basophils % % Neutrophils # (1.3-7.7) k/uL Lymphocytes # (1.0-4.8) k/uL Monocytes # (0-1.0) k/uL Eosinophils # (0-0.7) k/uL Basophils # (0-0.2) k/uL PT 10.5 (9.0-12.0) sec INR 1.0 (<1.2) APTT 26.5 (22.0-30.0) sec Sodium (137-145) mmol/L Potassium (3.5-5.1) mmol/L Chloride (98-107) mmol/L Carbon Dioxide (22-30) mmol/L Anion Gap mmol/L BUN (7-17) mg/dL Creatinine (0.52-1.04) mg/dL Est GFR (CKD-EPI)AfAm (>60 ml/min/1.73 sqM) Est GFR (CKD-EPI)NonAf (>60 ml/min/1.73 sqM) Glucose (74-99) mg/dL Calcium (8.4-10.2) mg/dL Total Bilirubin (0.2-1.3) mg/dL AST (14-36) U/L ALT (4-34) U/L Alkaline Phosphatase (38-126) U/L Troponin I <0.012 (0.000-0.034) ng/mL Total Protein (6.3-8.2) g/dL Albumin (3.5-5.0) g/dL Amylase (30-110) U/L Lipase (23-300) U/L Urine Color Urine Appearance (Clear) Urine pH (5.0-8.0) Ur Specific [place] (1.001-1.035) Urine Protein (Negative) Urine Glucose (UA) (Negative) Urine Ketones (Negative) Urine Blood (Negative) Urine Nitrite (Negative) Urine Bilirubin (Negative) Urine Urobilinogen (<2.0) mg/dL Ur Leukocyte Esterase (Negative) - Radiology Data Radiology results: report reviewed (Computed tomography scan of the abdomen pelvis does not reveal acute abnormality.) Disposition Clinical Impression: Abdominal pain Disposition: HOME SELF-CARE Condition: Stable Instructions (If sedation given, give patient instructions): Abdominal Pain (ED) Additional Instructions: Please follow-up with primary care physician in the next day or 2 for recheck. Return for increased pain, fever, vomiting, worsening or changing symptoms or other concerns. Prescription has been sent to your pharmacy. Prescriptions: Dicyclomine [Bentyl] 20 mg PO QID PRN #15 tablet PRN Reason: Pain Is patient prescribed a controlled substance at d/c from ED?: No Referrals: Rachana Lemon MD [Primary Care Provider] - 1-2 days Time of Disposition: 13:56
[2020-12-23 11:53] LABS: Basophils % (A) 1 %; Eosinophils # (A) 0.1 k/uL (0-0.7); Eosinophils % (A) 2 %; HCT 39.5 % (34.0-46.0); HGB 13.4 gm/dL (11.4-16.0); Lymphocytes # (A) 2.2 k/uL (1.0-4.8); Lymphocytes % (A) 33 %; MCH 28.5 pg (25.0-35.0); MCHC 33.8 g/dL (31.0-37.0); MCV 84.1 fL (80.0-100.0); Mean Platelet Volume 7.1; Monocytes # (A) 0.3 k/uL (0-1.0); Monocytes % (A) 5 %; Neutrophils # (A) 3.9 k/uL (1.3-7.7); Neutrophils % (A) 58 %; Platelet Count 239 k/uL (150-450); RDW 14.3 % (11.5-15.5); WBC 6.7 k/uL (3.8-10.6)
[2020-12-23 11:55] LABS: Appearance,Urine Clear (Clear); Bilirubin,Urine Negative (Negative); Blood,Urine Negative (Negative); Color,Urine Yellow; Glucose,Urine (UA) Negative (Negative); Ketones,Urine Negative (Negative); Leukocyte Esterase,Urine Negative (Negative); Nitrite,Urine Negative (Negative); Protein,Urine Negative (Negative); Specific Gravity,Urine 1.018 (1.001-1.035); Urobilinogen,Urine <2.0 mg/dL (<2.0)
[2020-12-23 12:16] LABS: ALT 32 U/L (4-34); AST 28 U/L (14-36); African American GFR (CKD) >90 (>60 ml/min/1.73 sqM); Albumin 4.3 g/dL (3.5-5.0); Alkaline Phosphatase 125 U/L (38-126); Amylase 53 U/L (30-110); Anion Gap 8 mmol/L; Blood Urea Nitrogen 20 mg/dL (7-17); Calcium 9.9 mg/dL (8.4-10.2); Carbon Dioxide 27 mmol/L (22-30); Chloride 105 mmol/L (98-107); Glucose 127 mg/dL (74-99); Lipase 108 U/L (23-300); Non-African American GFR(CKD) >90 (>60 ml/min/1.73 sqM); Potassium 4.3 mmol/L (3.5-5.1); Sodium 140 mmol/L (137-145); Total Bilirubin 0.3 mg/dL (0.2-1.3); Total Protein 7.1 g/dL (6.3-8.2)
[2020-12-23 12:19] LABS: Partial Thromboplastin Time 26.5 sec (22.0-30.0); Prothrombin Time 10.5 sec (9.0-12.0)
--- NOTE | 2020-12-23 13:06 | CT ---
EXAMINATION TYPE: CT abdomen pelvis w con DATE OF EXAM: 12/23/2020 HISTORY: Upper abdominal and lower pelvic pain CT DLP: 907.2mGycm Automated Exposure Control for Dose Reduction was Utilized. CONTRAST: CT scan of the abdomen and pelvis is performed without oral but with IV Contrast, patient injected wi th 100 mL of Isovue 300. COMPARISON: CT abdomen and pelvis October 03, 2020 FINDINGS: LUNG BASES: No significant abnormality is appreciated. LIVER/GB: Cholecystectomy clips are redemonstrated. PANCREAS: No significant abnormality is seen. SPLEEN: No significant abnormality is seen. ADRENALS: No significant abnormality is seen. KIDNEYS: No significant abnormality is seen. BOWEL: No suspicious small or large bowel dilatation. UTERUS/ADNEXA: Uterus surgically absent or markedly atrophic. LYMPH NODES: No greater than 1cm abdominal or pelvic lymph nodes are appreciated. OSSEOUS STRUCTURES: Moderate disc space narrowing right L4-L5 level. Mild to moderate axial joint spa ce loss in both hips. OTHER: Mild calcified plaque of the aorta extends into branch vessels. IMPRESSION: No significant new or acute finding is seen to account for patient's clinical symptoms.
[2020-12-23 14:30] VITALS: BP 136/82; PULSE 86
== END 2020-12-23 14:29 | disposition home or self-care (01) ==
LOC: EC 10:51
DX: R10.11 Right upper quadrant pain (principal); R10.2 Pelvic and perineal pain; R19.7 Diarrhea, unspecified; I10 Essential (primary) hypertension; F32.9 Major depressive disorder, single episode, unspecified; F41.9 Anxiety disorder, unspecified; M19.041 Primary osteoarthritis, right hand; M19.042 Primary osteoarthritis, left hand; Z79.82 Long term (current) use of aspirin; Z79.899 Other long term (current) drug therapy; Z90.49 Acquired absence of other specified parts of digestive tract
CPT/HCPCS: 36415; 93005; 80053; 82150; 83690; 84484; 85025; 85610; 85730; 81003; 74177; 99284; 96374; 96361 ×3; Q9967

== ENCOUNTER → 2021-09-22 | Outpatient (CLI) | payer MEDICARE ==
--- NOTE | 2021-09-23 11:34 | MM ---
Reason for exam: screening (asymptomatic). Last mammogram was performed 1 year and 2 months ago. History: Patient is postmenopausal. Physical Findings: A clinical breast exam by your physician is recommended on an annual basis and results should be correlated with mammographic findings. MG Screening Mammo w CAD Bilateral CC and MLO view(s) were taken. Prior study comparison: July 28, 2020, bilateral MG screening mammo w CAD. April 12, 2019, bilateral MG 3d screening mammo w/cad. There are scattered fibroglandular densities. There is no discrete abnormality. No significant changes when compared with prior studies. ASSESSMENT: Negative, BI-RAD 1 RECOMMENDATION: Routine screening mammogram of both breasts in 1 year.
== END | disposition home or self-care (01) ==
LOC: RADMAMWWP 08:33
PROVIDERS: ATTEND Family Medicine
DX: Z12.31 Encounter for screening mammogram for malignant neoplasm of breast (principal); Z78.0 Asymptomatic menopausal state
CPT/HCPCS: 77067

== ENCOUNTER → 2023-01-06 | Outpatient (CLI) | payer MEDICARE ==
--- NOTE | 2023-01-06 14:49 | US ---
EXAMINATION TYPE: US thyroid st tissue head/neck DATE OF EXAM: 01/06/2023 COMPARISON: FNA 07/23/2022, thyroid ultrasound 01/01/2019, 01/12/2019 CLINICAL INDICATION: Female, 62 years old with history of E04.2 MULTINODULAR GOITER; Follow up nodule s. Patient states she has had nodules drained before. GLAND SIZE: Right Lobe: 4.5 x 1.8 x 1.6 cm Overall Parenchyma: homogenous Left Lobe: 3.8 x 1.7 x 1.5 cm Overall Parenchyma: homogeneous Isthmus Thickness: 0.3 cm NODULES RIGHT: # of nodules measured on right: 2 1. 2.1 X 1.2 x 1.0 cm, mid mid, mixed cystic and solid, hypoechoic nodule, which is wider than tall , with smooth margins, without echogenic foci. TR3. Previously FNA. Prior size: 1.7 x 0.6 x 1.3 cm 2. 0.6 X 0.4 x 0.3 cm, lower mid, mixed cystic and solid, hypoechoic nodule, which is wider than ta ll, with smooth margins, without echogenic foci. TR3. Prior size: 0.6 x 0.5 x 0.6 cm LEFT: # of nodules measured on left: 2 1. 1.0 X 1.0 x 1.0 cm, upper mid, solid or almost completely solid, isoechoic nodule, which is wide r than tall, with ill-defined margins, without echogenic foci. TR3. Prior size: 1.3 x 0.7 x 1.1 cm 2. 1.2 X 0.9 x 0.9 cm, lower lateral, mixed cystic and solid, hypoechoic nodule, which is wider th an tall, with smooth margins, without echogenic foci. TR3. Prior size: 0.6 x 0.4 x 0.5 cm 3. 0.6 X 0.5 cm, upper mid, echogenic foci. ISTHMUS: # of nodules measured in the isthmus: 0 Bilateral neck scanned, no evidence of lymphadenopathy. IMPRESSION: 1. Mildly increased size of previously FNA right thyroid lobe 2.1 cm mixed cystic/solid TR 3 lesion. Primarily increase in cystic component. 2. Mildly increased in size of left thyroid lobe 1.2 cm TR 3 nodule. Follow-up ultrasound in one year is recommended. 3. Remaining bilateral thyroid nodules are stable. No new thyroid nodules.
== END | disposition home or self-care (01) ==
LOC: RADUSWWP 13:33
PROVIDERS: ATTEND Internal Medicine Endocrinology, Diabetes & Metabolism
DX: E04.2 Nontoxic multinodular goiter (principal)
CPT/HCPCS: 76536

== ENCOUNTER → 2023-06-09 | Outpatient (CLI) | payer MEDICARE ==
[2023-06-09 11:37] LABS: T4, Free (Free Thyroxine) 1.29 ng/dL (0.80-1.80)
== END | disposition home or self-care (01) ==
LOC: LABWHC1 08:23
PROVIDERS: ATTEND Internal Medicine Endocrinology, Diabetes & Metabolism
DX: E04.2 Nontoxic multinodular goiter (principal)
CPT/HCPCS: 36415; 84439; 84443

== ENCOUNTER → 2023-06-28 | Outpatient (CLI) | payer MEDICARE ==
--- NOTE | 2023-06-28 16:53 | US ---
EXAMINATION TYPE: US thyroid st tissue head/neck DATE OF EXAM: 06/28/2023 COMPARISON: US CLINICAL INDICATION: Female, 63 years old with history of E04.2 NONTOXIC MULTINODULAR GOITER; F/U GLAND SIZE: Right Lobe: 4.8 x 1.3 cm Overall Parenchyma: homogeneous Left Lobe: 4.8 x 1.5 cm Overall Parenchyma: homogeneous Isthmus Thickness: cm NODULES RIGHT: # of nodules measured on right: 1 1. 0.5 X 0.3 x 0.5 cm, mid, solid or almost completely solid, isoechoic nodule, which is wider than tall, with smooth margins, without echogenic foci. Prior size: Not visualized on prior LEFT: # of nodules measured on left: 3 1. 1.5 X 1.0 x 1.0 cm, lower, mixed cystic and solid, hypoechoic nodule, which is wider than tall, with smooth margins, without echogenic foci. Prior size: 1.2 x 0.9 x 0.9 cm 2. 1.4 X 1.0 x 1.2 cm, mid, solid, isoechoic nodule, which is wider than tall, with ill-defined ma rgins, without echogenic foci. Prior size: 1.0 x 1.0 x 1.0 cm 3. 0.6 cm calcification upper pole Prior size: 0.6 cm ISTHMUS: # of nodules measured in the isthmus: 0 Bilateral neck scanned, no evidence of lymphadenopathy. A few sub-centimeter nodules right lobe, larg est measured. Three nodules visualized on prior scan still visualized today with two having slight i ncrease in size. IMPRESSION: Mildly Suspicious: FNA if ? 2.5 cm; Follow if ? 1.5 cm at 1, 3, and 5 y 2017 ACR TI-RADS LEVEL: TR3 *Highest TI-RADS level nodule reported
== END | disposition home or self-care (01) ==
LOC: RADUSWWP 15:17
PROVIDERS: ATTEND Internal Medicine Endocrinology, Diabetes & Metabolism
DX: E04.2 Nontoxic multinodular goiter (principal)
CPT/HCPCS: 76536

== ENCOUNTER → 2023-07-22 | Outpatient (CLI) | payer MEDICARE ==
--- NOTE | 2023-07-22 07:41 | US ---
EXAMINATION TYPE: US pelvic complete DATE OF EXAM: 07/22/2023 COMPARISON: NONE CLINICAL INDICATION: Female, 63 years old with history of R10.2 PELVIC AND PERINEAL PAIN; left side p elvic pain x 1 week, hysterectomy 15-20 years ago TECHNIQUE: Transabdominal (TA). Transabdominal sonographic images of the pelvis were acquired. Date of LMP: hysterectomy EXAM MEASUREMENTS: Uterus: Surgically absent Endometrial Stripe: Surgically absent Right Ovary: 1.0x1.8x2.9 cm Left Ovary: 1.0x1.1x1.0 cm 1. Uterus: Surgically absent 2. Endometrium: Surgically absent 3. Right Ovary: wnl 4. Left Ovary: wnl 5. Bilateral Adnexa: Obscured by overlying bowel gas 6. Posterior cul-de-sac: wnl IMPRESSION: 1. Unremarkable post hysterectomy pelvic ultrasound
== END | disposition home or self-care (01) ==
LOC: RADUSWWP 06:37
PROVIDERS: ATTEND Family Medicine
DX: R10.2 Pelvic and perineal pain (principal); Z90.710 Acquired absence of both cervix and uterus
CPT/HCPCS: 76856

== ENCOUNTER → 2023-10-27 | Outpatient (CLI) | payer MEDICARE ==
--- NOTE | 2023-10-27 13:33 | MM ---
Reason for Exam: Screening (asymptomatic). Last mammogram was performed 1 year(s) and 1 month(s) ago. Patient History: Menarche at age 12. First Full-Term at age 18. Hysterectomy at age 38. Postmenopausal. Risk Values: Patricia 5 year model risk: 1.1%. NCI Lifetime model risk: 4.9%. Prior Study Comparison: 02/17/2017 Bilateral Screening Mammogram, [facility]. 03/31/2018 Bilateral Screening Mammogram, [facility]. 04/12/2019 Bilateral Screening Mammogram, [facility]. 07/28/2020 Bilateral Screening Mammogram, [facility]. 09/22/2021 Bilateral Screening Mammogram, [facility]. 09/24/2022 Bilateral MG 3D screening mammo w/cad, [facility]. Tissue Density: There are scattered areas of fibroglandular density. Findings: Analyzed By CAD. Right breast: There is no suspicious group of microcalcifications or new suspicious mass. Left breast: There is no suspicious group of microcalcifications or new suspicious mass. Overall Assessment: Negative, BI-RAD 1 Management: Screening Mammogram of both breasts in [address] [facility] will attempt to contact patient to return for supplemental views and ultrasound if indicated. Patient should continue monthly self-breast exams. A clinical breast exam by your physician is recommended on an annual basis. This exam should not preclude additional follow-up of suspicious palpable abnormalities. Note on Patricia scores and lifetime risk: 1. A Patricia score greater than 3% is considered moderate risk. If this is the case, consider specialist referral to assess eligibility for a risk reducing agent. 2. If overall lifetime risk for the development of breast cancer is 20% or higher, the patient may qualify for future screening with alternating mammogram and breast MRI. Electronically signed and approved by: Eduardo Munguia DO
== END | disposition home or self-care (01) ==
LOC: RADMAMWWP 08:23
PROVIDERS: ATTEND Family Medicine
DX: Z12.31 Encounter for screening mammogram for malignant neoplasm of breast (principal); Z78.0 Asymptomatic menopausal state
CPT/HCPCS: 77063; 77067